=== PATIENT | male | born 1945 | race Caucasian/White ===

== ENCOUNTER 2021-04-22 14:22 | Inpatient (IN) | payer OTHER, MEDICARE, BC ==
[~2021-04-22] VITALS: Ht 182.9 cm; Wt 114.1 kg
[2021-04-22] MEDS ORDERED: HYDR-4514 PO (14:47)
[2021-04-22] MEDS ORDERED: WARF4TAB52 PO (14:47)
[2021-04-22] MEDS ORDERED: MIRT1TAB PO (14:47)
[2021-04-22] MEDS ORDERED: DIAZ5TAB PO (14:47)
[2021-04-22] MEDS ORDERED: WARF-58 PO ×2 (14:47)
[2021-04-22] MEDS ORDERED: MORPHINE 2 MG/ML 1ML VIAL (J2270) IV ONE ×2 (14:55→18:10)
[2021-04-22 17:14] LABS: BASO % 0.4 % (0.0-1.0); EOS % 0.5 % (0.0-3.0); HEMATOCRIT 49.4 % (42.0-52.0); HEMOGLOBIN 15.9 g/dl (13.5-17.5); LYMPH # 1.1 10^3/uL (1.5-5.0); LYMPH % 13.6 % (24.0-44.0); MEAN CORPUSCULAR HEMOGLOBIN 29.7 pg (27.0-33.0); MEAN CORPUSCULAR HGB CONC 32.2 g/dl (32.0-36.5); MEAN CORPUSCULAR VOLUME 92.2 fl (80.0-96.0); MONO # 0.5 10^3/uL (0.0-0.8); MONO % 5.5 % (2.0-8.0); NEUTROPHILS # 6.7 10^3/uL (1.5-8.5); NEUTROPHILS % 79.8 % (36.0-66.0); PLATELET COUNT, AUTOMATED 143 10^3/uL (150-450); RED BLOOD COUNT 5.36 10^6/uL (4.30-6.10); WHITE BLOOD COUNT 8.4 10^3/uL (4.0-10.0)
[2021-04-22 18:16] LABS: BLOOD UREA NITROGEN 17 MG/DL (7-18); GLUCOSE, FASTING 96 MG/DL (70-100)
[2021-04-22 18:17] LABS: CALCIUM LEVEL 8.7 MG/DL (8.8-10.2); CARBON DIOXIDE LEVEL 28 mmol/L (20-29); CHLORIDE LEVEL 107 MEQ/L (98-107); CREATININE FOR GFR 1.23 MG/DL (0.70-1.30); GLOMERULAR FILTRATION RATE > 60.0 (>42); POTASSIUM SERUM 4.8 MEQ/L (3.5-5.1); SODIUM LEVEL 141 MEQ/L (136-145)
[2021-04-22 18:18] LABS: ALBUMIN 3.6 GM/DL (3.2-5.2); ALT/SGPT 21 IU/L (0-32); BILIRUBIN,DIRECT 0.2 MG/DL (0.0-0.2); BILIRUBIN,TOTAL 0.5 MG/DL (0.2-1.0); ETHYL ALCOHOL (ETHANOL) < 0.003 % (0.000-0.010); TOTAL PROTEIN 6.2 GM/DL (6.4-8.2)
[2021-04-22 18:23] LABS: CK-MB VALUE MASS 2.9 NG/ML (<3.6); MB/CK RELATIVE INDEX 2.58 (< OR =4)
[2021-04-22 19:36] LABS: INR 3.49; PROTHROMBIN TIME 35.3 SECONDS (12.7-14.5)
[2021-04-22 19:38] LABS: PARTIAL THROMBOPLASTIN TIME 56.1 SECONDS (25.9-37.0)
[2021-04-22 19:46] LABS: APPEARANCE, URINE CLEAR (CLEAR); BACTERIA, URINE AUTO NEGATIVE (NEGATIVE); BILIRUBIN, URINE AUTO NEGATIVE (NEGATIVE); BLOOD, URINE BLOOD 1+ (NEGATIVE); COLOR, URINE YELLOW (YELLOW); GLUCOSE, URINE (UA) AUTO NEGATIVE (NEGATIVE); KETONE, URINE AUTO NEGATIVE (NEGATIVE); LEUKOCYTE ESTERASE, URINE AUTO NEGATIVE (NEGATIVE); MUCUS, URINE SMALL (NEGATIVE); NITRITE, URINE AUTO NEGATIVE (NEGATIVE); PROTEIN, URINE AUTO NEGATIVE (NEGATIVE); RBC, URINE AUTO 1 /HPF (0-3); SPECIFIC GRAVITY URINE AUTO 1.019 (1.002-1.035); SQUAMOUS EPITHELIAL CELL UR AU 0 /HPF (0-6); UROBILINOGEN, URINE AUTO 0.2 mg/dL (0.0-2.0); WBC, URINE AUTO 1 /HPF (0-3)
[2021-04-22 19:48] LABS: RSV AMPLIFICATION NEGATIVE (NEGATIVE)
[2021-04-22 19:54] LABS: AMPHETAMINES LEVEL URINE NEGATIVE (NEGATIVE); BARBITURATES URINE NEGATIVE (NEGATIVE); BENZODIAZEPINES URINE POSITIVE (NEGATIVE); CANNABINOIDS URINE NEGATIVE (NEGATIVE); COCAINE METABOLITE URINE NEGATIVE (NEGATIVE); METHADONE URINE NEGATIVE (NEGATIVE); OPIATES URINE POSITIVE (NEGATIVE); PHENCYCLIDINE URINE NEGATIVE (NEGATIVE)
[2021-04-22] MEDS ORDERED: D31000TA2 PO (20:01)
[2021-04-22] MEDS ORDERED: GABA-282 PO (20:01)
[2021-04-22] MEDS ORDERED: APAP325T4 PO (20:01)
[2021-04-22] MEDS ORDERED: VITA500T40 PO (20:01)
[2021-04-22] MEDS ORDERED: HOME MED LIST COMPLETE! XX SCH (20:05)
[2021-04-22] MEDS ORDERED: ANEXSIA, NORCO 7.5MG/325MG TABLET(HYDROCODONE/APAP) PO PRN (20:45)
[2021-04-22] MEDS ORDERED: ACETAMINOPHEN TAB 650MG DOSE (2X325MG) PO PRN (20:45)
[2021-04-22] MEDS ORDERED: MOM 30ML SUSPENSION UDC PO PRN (20:45)
[2021-04-22 23:00] VITALS: BP 123/71
[2021-04-22] MEDS: diazePAM 5MG TABLET PO SCH (23:44)
[2021-04-22] MEDS: MIRTAZAPINE 7.5MG PER 1/2 TABLET PO SCH (23:44)
[2021-04-23 06:00] VITALS: BP 121/75
[2021-04-23] MEDS ORDERED: MORPHINE 2 MG/ML 1ML VIAL (J2270) IV ONE (06:05)
[2021-04-23 06:15] LABS: HEMATOCRIT 49.1 % (42.0-52.0); HEMOGLOBIN 15.8 g/dl (13.5-17.5); MEAN CORPUSCULAR HEMOGLOBIN 29.9 pg (27.0-33.0); MEAN CORPUSCULAR HGB CONC 32.2 g/dl (32.0-36.5); MEAN CORPUSCULAR VOLUME 92.8 fl (80.0-96.0); PLATELET COUNT, AUTOMATED 148 10^3/uL (150-450); RED BLOOD COUNT 5.29 10^6/uL (4.30-6.10); WHITE BLOOD COUNT 7.4 10^3/uL (4.0-10.0)
[2021-04-23 06:37] LABS: ALBUMIN 3.8 GM/DL (3.2-5.2); ALT/SGPT 21 U/L (12-78); BILIRUBIN,TOTAL 0.8 MG/DL (0.2-1.0); BLOOD UREA NITROGEN 19 MG/DL (7-18); CALCIUM LEVEL 8.9 MG/DL (8.8-10.2); CARBON DIOXIDE LEVEL 27 MEQ/L (21-32); CHLORIDE LEVEL 108 MEQ/L (98-107); CREATININE FOR GFR 1.16 MG/DL (0.70-1.30); GLOMERULAR FILTRATION RATE > 60.0 (>42); GLUCOSE, FASTING 97 MG/DL (70-100); SODIUM LEVEL 143 MEQ/L (136-145); TOTAL PROTEIN 6.7 GM/DL (6.4-8.2)
[2021-04-23] MEDS ORDERED: CYCLOBENZAPRINE 10MG TABLET PO PRN (09:10)
[2021-04-23] MEDS ORDERED: PERCOCET 5MG/325MG TAB PO PRN (09:10)
[2021-04-23] MEDS: PERCOCET 5MG/325MG TAB PO PRN ×2 (09:38→13:46)
[2021-04-23 13:05] LABS: INR 3.48; PROTHROMBIN TIME 35.2 SECONDS (12.7-14.5)
[2021-04-23 13:47] VITALS: BP 119/61
[2021-04-23] MEDS: diazePAM 5MG TABLET PO SCH (21:06)
[2021-04-23] MEDS: MIRTAZAPINE 7.5MG PER 1/2 TABLET PO SCH (21:06)
[2021-04-23 22:00] VITALS: BP 122/59
[2021-04-24 06:00] VITALS: BP 163/78
[2021-04-24 06:35] LABS: BASO % 0.7 % (0.0-1.0); EOS # 0.1 10^3/uL (0.0-0.5); EOS % 1.7 % (0.0-3.0); HEMATOCRIT 46.4 % (42.0-52.0); LYMPH # 1.2 10^3/uL (1.5-5.0); LYMPH % 20.5 % (24.0-44.0); MEAN CORPUSCULAR HEMOGLOBIN 29.8 pg (27.0-33.0); MEAN CORPUSCULAR HGB CONC 32.3 g/dl (32.0-36.5); MEAN CORPUSCULAR VOLUME 92.1 fl (80.0-96.0); MONO # 0.5 10^3/uL (0.0-0.8); MONO % 7.6 % (2.0-8.0); NEUTROPHILS # 4.1 10^3/uL (1.5-8.5); NEUTROPHILS % 69.3 % (36.0-66.0); PLATELET COUNT, AUTOMATED 131 10^3/uL (150-450); RED BLOOD COUNT 5.04 10^6/uL (4.30-6.10); WHITE BLOOD COUNT 5.9 10^3/uL (4.0-10.0)
[2021-04-24 06:47] LABS: INR 3.39; PROTHROMBIN TIME 34.5 SECONDS (12.7-14.5)
[2021-04-24 06:59] LABS: BLOOD UREA NITROGEN 15 MG/DL (7-18); CALCIUM LEVEL 8.4 MG/DL (8.8-10.2); CARBON DIOXIDE LEVEL 27 MEQ/L (21-32); CHLORIDE LEVEL 106 MEQ/L (98-107); CREATININE FOR GFR 1.17 MG/DL (0.70-1.30); GLOMERULAR FILTRATION RATE > 60.0 (>42); GLUCOSE, FASTING 96 MG/DL (70-100); SODIUM LEVEL 141 MEQ/L (136-145)
[2021-04-24] MEDS ORDERED: PERCOCET PO (09:32)
[2021-04-24] MEDS ORDERED: CYCL10TA20 PO (09:32)
== END 2021-04-24 11:00 | DRG 930 ==
LOC: M ED 14:22 → EDBD 14:22 → M MS5PR 20:41 → ENRESERV 21:52
PROVIDERS: ADMIT Family Medicine; ATTEND Internal Medicine
DX: S34.21XA Injury of nerve root of lumbar spine, initial encounter (principal); S06.9X1A Unspecified intracranial injury with loss of consciousness of 30 minutes or less, initial encounter; F43.10 Post-traumatic stress disorder, unspecified; Z86.718 Personal history of other venous thrombosis and embolism; Z79.899 Other long term (current) drug therapy; Z91.040 Latex allergy status; Z88.0 Allergy status to penicillin; Z88.5 Allergy status to narcotic agent; Z91.012 Allergy to eggs; Z96.653 Presence of artificial knee joint, bilateral; W18.30XA Fall on same level, unspecified, initial encounter; Y92.009 Unspecified place in unspecified non-institutional (private) residence as the place of occurrence of the external cause

== ENCOUNTER 2021-04-24 10:40 | Inpatient (IN) | payer OTHER, MEDICARE ==
[~2021-04-24] VITALS: Ht 182.9 cm; Wt 114.1 kg
[~2021-04-24 10:40] MED LIST: APAP325T4 PO; CYCL10TA20 PO; D31000TA2 PO; DIAZ5TAB PO; GABA-282 PO; HYDR-4514 PO; MIRT1TAB PO; PERCOCET PO; VITA500T40 PO; WARF-58 PO; WARF4TAB52 PO
[2021-04-24] MEDS ORDERED: CYCLOBENZAPRINE 10MG TABLET PO PRN (10:45)
[2021-04-24] MEDS ORDERED: BISACODYL 10 MG SUPP PR PRN (10:45)
[2021-04-24] MEDS ORDERED: oxyCODONE 5MG TAB PO PRN (10:45)
[2021-04-24] MEDS ORDERED: MIRALAX *UNIT DOSE* 17GM PACKET PO PRN (10:45)
[2021-04-24 11:05] VITALS: BP 145/65
[2021-04-24] MEDS ORDERED: HOME MED LIST COMPLETE! XX SCH (11:35)
[2021-04-24] MEDS: DICLOFENAC EPOLAMINE 1.3 % PATCH TOP SCH ×2 (12:12→20:53)
[2021-04-24] MEDS: DOCUSATE SODIUM 100MG CAPSULE PO SCH ×2 (12:12→20:52)
[2021-04-24] MEDS: PANTOPRAZOLE 40MG TAB (PROTONIX) PO SCH (12:13)
[2021-04-24] MEDS: MAGNESIUM OXIDE 400MG TAB (MAG-OX) PO SCH (12:13)
[2021-04-24 14:00] VITALS: BP 157/72
[2021-04-24] MEDS: ACETAMINOPHEN 500 MG TAB PO SCH ×2 (14:26→20:52)
[2021-04-24] MEDS: REMEDY PHYTOPLEX Z-GUARD PASTE 113GM TUBE (FROM STOREROOM PRODUCT) TOP SCH ×2 (15:47→20:53)
[2021-04-24 20:00] VITALS: BP 131/60
[2021-04-24] MEDS: SENNA 8.6 MG TAB (SENOKOT) PO SCH (20:52)
[2021-04-24] MEDS: MIRTAZAPINE 7.5MG PER 1/2 TABLET PO SCH (20:52)
[2021-04-24] MEDS: diazePAM 5MG TABLET PO SCH (20:52)
[2021-04-25 06:00] VITALS: BP 120/64
[2021-04-25] MEDS: ACETAMINOPHEN 500 MG TAB PO SCH ×3 (06:23→20:26)
[2021-04-25] MEDS: DOCUSATE SODIUM 100MG CAPSULE PO SCH ×2 (08:09→20:27)
[2021-04-25] MEDS: REMEDY PHYTOPLEX Z-GUARD PASTE 113GM TUBE (FROM STOREROOM PRODUCT) TOP SCH ×3 (08:10→20:26)
[2021-04-25] MEDS: DICLOFENAC EPOLAMINE 1.3 % PATCH TOP SCH ×2 (08:10→20:26)
[2021-04-25] MEDS: PANTOPRAZOLE 40MG TAB (PROTONIX) PO SCH (08:10)
[2021-04-25] MEDS: MAGNESIUM OXIDE 400MG TAB (MAG-OX) PO SCH (08:10)
[2021-04-25 11:13] LABS: BASO % 0.7 % (0.0-1.0); EOS # 0.1 10^3/uL (0.0-0.5); EOS % 1.8 % (0.0-3.0); HEMATOCRIT 46.8 % (42.0-52.0); HEMOGLOBIN 15.5 g/dl (13.5-17.5); LYMPH # 0.8 10^3/uL (1.5-5.0); LYMPH % 17.4 % (24.0-44.0); MEAN CORPUSCULAR HEMOGLOBIN 29.8 pg (27.0-33.0); MEAN CORPUSCULAR HGB CONC 33.1 g/dl (32.0-36.5); MONO # 0.4 10^3/uL (0.0-0.8); MONO % 9.2 % (2.0-8.0); NEUTROPHILS # 3.2 10^3/uL (1.5-8.5); NEUTROPHILS % 70.7 % (36.0-66.0); PLATELET COUNT, AUTOMATED 148 10^3/uL (150-450); WHITE BLOOD COUNT 4.5 10^3/uL (4.0-10.0)
[2021-04-25 11:25] LABS: INR 2.45
[2021-04-25 11:44] LABS: ALBUMIN 3.5 GM/DL (3.2-5.2); ALT/SGPT 19 U/L (12-78); BILIRUBIN,TOTAL 0.7 MG/DL (0.2-1.0); BLOOD UREA NITROGEN 15 MG/DL (7-18); CALCIUM LEVEL 9.1 MG/DL (8.8-10.2); CARBON DIOXIDE LEVEL 27 MEQ/L (21-32); CHLORIDE LEVEL 108 MEQ/L (98-107); CREATININE FOR GFR 1.16 MG/DL (0.70-1.30); GLOMERULAR FILTRATION RATE > 60.0 (>42); GLUCOSE, FASTING 101 MG/DL (70-100); POTASSIUM SERUM 4.4 MEQ/L (3.5-5.1); SODIUM LEVEL 139 MEQ/L (136-145); TOTAL PROTEIN 6.3 GM/DL (6.4-8.2)
[2021-04-25 14:00] VITALS: BP 136/71
[2021-04-25] MEDS ORDERED: WARFARIN SOD 2MG TAB PO SCH (17:00)
[2021-04-25 20:00] VITALS: BP 124/56
[2021-04-25] MEDS: diazePAM 5MG TABLET PO SCH (20:25)
[2021-04-25] MEDS: MIRTAZAPINE 7.5MG PER 1/2 TABLET PO SCH (20:25)
[2021-04-25] MEDS: SENNA 8.6 MG TAB (SENOKOT) PO SCH (20:26)
[2021-04-26] MEDS: ACETAMINOPHEN 500 MG TAB PO SCH ×2 (05:48→13:22)
[2021-04-26 06:00] VITALS: BP 143/67
[2021-04-26 07:43] LABS: INR 2.22
[2021-04-26] MEDS: MAGNESIUM OXIDE 400MG TAB (MAG-OX) PO SCH (08:27)
[2021-04-26] MEDS: DOCUSATE SODIUM 100MG CAPSULE PO SCH (08:27)
[2021-04-26] MEDS: DICLOFENAC EPOLAMINE 1.3 % PATCH TOP SCH (08:27)
[2021-04-26] MEDS: PANTOPRAZOLE 40MG TAB (PROTONIX) PO SCH (08:27)
[2021-04-26] MEDS: REMEDY PHYTOPLEX Z-GUARD PASTE 113GM TUBE (FROM STOREROOM PRODUCT) TOP SCH (08:27)
[2021-04-26] MEDS ORDERED: JANT2TAB PO (11:01)
[2021-04-26] MEDS ORDERED: PERCOCET PO (11:01)
[2021-04-26] MEDS ORDERED: CYCL10TA20 PO (11:01)
[2021-04-26 14:00] VITALS: BP 147/71
== END 2021-04-26 15:00 | disposition home or self-care (01) | DRG 347 ==
LOC: M PM&R 11:05
PROVIDERS: ADMIT Physical Medicine & Rehabilitation; ATTEND Physical Medicine & Rehabilitation
DX: M48.061 Spinal stenosis, lumbar region without neurogenic claudication (principal); F41.9 Anxiety disorder, unspecified; F43.10 Post-traumatic stress disorder, unspecified; Z86.718 Personal history of other venous thrombosis and embolism; R53.1 Weakness; Z91.81 History of falling; Z79.01 Long term (current) use of anticoagulants; Z79.899 Other long term (current) drug therapy; Z88.0 Allergy status to penicillin; Z88.8 Allergy status to other drugs, medicaments and biological substances; Z91.040 Latex allergy status; Z91.012 Allergy to eggs

== ENCOUNTER → 2021-05-30 | Outpatient (CLI) | payer OTHER, MEDICARE, BC ==
[~2021-05-30] MED LIST changes: +JANT2TAB PO
== END ==
LOC: M SOG 15:17
PROVIDERS: ATTEND Orthopaedic Surgery Sports Medicine
DX: S46.011A Strain of muscle(s) and tendon(s) of the rotator cuff of right shoulder, initial encounter (principal); X58.XXXA Exposure to other specified factors, initial encounter; Y92.9 Unspecified place or not applicable; Y93.9 Activity, unspecified; Y99.9 Unspecified external cause status

== ENCOUNTER 2021-06-26 17:07 | Emergency (ER) | payer OTHER ==
[~2021-06-26] VITALS: Ht 180.3 cm; Wt 106.8 kg
[2021-06-26 18:13] LABS: BASO % 0.6 % (0.0-1.0); EOS # 0.1 10^3/uL (0.0-0.5); HEMATOCRIT 48.8 % (42.0-52.0); HEMOGLOBIN 16.1 g/dl (13.5-17.5); LYMPH % 13.5 % (24.0-44.0); MEAN CORPUSCULAR HEMOGLOBIN 29.9 pg (27.0-33.0); MEAN CORPUSCULAR VOLUME 90.7 fl (80.0-96.0); MONO # 0.5 10^3/uL (0.0-0.8); MONO % 6.4 % (2.0-8.0); NEUTROPHILS # 5.6 10^3/uL (1.5-8.5); NEUTROPHILS % 78.2 % (36.0-66.0); PLATELET COUNT, AUTOMATED 145 10^3/uL (150-450); RED BLOOD COUNT 5.38 10^6/uL (4.30-6.10); WHITE BLOOD COUNT 7.2 10^3/uL (4.0-10.0)
[2021-06-26] MEDS ORDERED: PHYTONADIONE INJection 5 MG in NS 50 ML IV ONE (18:20)
[2021-06-26 18:23] LABS: INR 1.64; PROTHROMBIN TIME 19.8 SECONDS (12.7-14.5)
[2021-06-26 18:24] LABS: PARTIAL THROMBOPLASTIN TIME 42.8 SECONDS (25.9-37.0)
[2021-06-26 18:37] LABS: ALBUMIN 3.6 GM/DL (3.2-5.2); ALT/SGPT 24 U/L (12-78); AMYLASE 45 U/L (25-115); BILIRUBIN,DIRECT < 0.1 MG/DL (0.0-0.2); BILIRUBIN,TOTAL 0.4 MG/DL (0.2-1.0); BLOOD UREA NITROGEN 22 MG/DL (7-18); CARBON DIOXIDE LEVEL 31 MEQ/L (21-32); CHLORIDE LEVEL 106 MEQ/L (98-107); CREATININE FOR GFR 1.09 MG/DL (0.70-1.30); ETHYL ALCOHOL (ETHANOL) < 0.003 % (0.000-0.010); GLOMERULAR FILTRATION RATE > 60.0 (>42); GLUCOSE, FASTING 96 MG/DL (70-100); LIPASE 102 U/L (73-393); POTASSIUM SERUM 4.7 MEQ/L (3.5-5.1); SODIUM LEVEL 140 MEQ/L (136-145); TOTAL PROTEIN 6.2 GM/DL (6.4-8.2)
[2021-06-26 18:44] LABS: RSV AMPLIFICATION NEGATIVE (NEGATIVE)
[2021-06-26] MEDS ORDERED: PERCOCET 5MG/325MG TAB PO ONE (19:30)
[2021-06-26] MEDS ORDERED: MORPHINE 4 MG/ML 1ML VIAL/SYRINGE IV ONE (20:30)
[2021-06-26 20:41] VITALS: BP 126/86
== END 2021-06-26 20:48 | disposition short-term general hospital (02) ==
LOC: EDBD 17:07 → M ED 17:07
DX: S06.5X9A Traumatic subdural hemorrhage with loss of consciousness of unspecified duration, initial encounter (principal); W18.30XA Fall on same level, unspecified, initial encounter; J45.909 Unspecified asthma, uncomplicated; I48.91 Unspecified atrial fibrillation; Z87.891 Personal history of nicotine dependence; Y92.009 Unspecified place in unspecified non-institutional (private) residence as the place of occurrence of the external cause; Z88.0 Allergy status to penicillin; Z91.012 Allergy to eggs; Z91.040 Latex allergy status; Z79.01 Long term (current) use of anticoagulants; Z79.899 Other long term (current) drug therapy
CPT/HCPCS: 70450; 71045; 72125; 72128; 72131; 73552; 73564; 73590; 73610; 80048; 80076; 82077; 82150; 83605; 83690; 85025; 85610; 85730; 86850; 86900; 86901; 87631; 93005; 93041; 94760; 96365; 96375; 99285; J2270; J3430

== ENCOUNTER → 2021-06-26 | Outpatient (CLI) | payer OTHER ==
[~2021-06-26] MED LIST changes: -D31000TA2 PO; +VITA100093 PO
[2021-06-26 13:21] LABS: BASO % 0.5 % (0.0-1.0); EOS # 0.1 10^3/uL (0.0-0.5); EOS % 1.3 % (0.0-3.0); HEMATOCRIT 51.3 % (42.0-52.0); HEMOGLOBIN 16.7 g/dl (13.5-17.5); LYMPH # 1.1 10^3/uL (1.5-5.0); LYMPH % 14.9 % (24.0-44.0); MEAN CORPUSCULAR HEMOGLOBIN 29.8 pg (27.0-33.0); MEAN CORPUSCULAR HGB CONC 32.6 g/dl (32.0-36.5); MEAN CORPUSCULAR VOLUME 91.4 fl (80.0-96.0); MONO # 0.5 10^3/uL (0.0-0.8); MONO % 6.1 % (2.0-8.0); NEUTROPHILS # 5.8 10^3/uL (1.5-8.5); NEUTROPHILS % 77.1 % (36.0-66.0); PLATELET COUNT, AUTOMATED 167 10^3/uL (150-450); RED BLOOD COUNT 5.61 10^6/uL (4.30-6.10); WHITE BLOOD COUNT 7.5 10^3/uL (4.0-10.0)
[2021-06-26 13:52] LABS: ERYTHROCYTE SEDIMENTATION RATE 2 mm/hr (0-20)
== END ==
LOC: M LAB 12:25
PROVIDERS: ATTEND Orthopaedic Surgery Adult Reconstructive Orthopaedic Surgery
DX: T84.84XA Pain due to internal orthopedic prosthetic devices, implants and grafts, initial encounter (principal)

== ENCOUNTER → 2021-06-26 | Outpatient (CLI) | payer OTHER, MEDICARE, BC | LOC: M SOG 08:19 | PROVIDERS: ATTEND Orthopaedic Surgery Adult Reconstructive Orthopaedic Surgery | DX: M25.561 Pain in right knee (principal); Z96.651 Presence of right artificial knee joint ==

== ENCOUNTER → 2021-06-26 | Outpatient (CLI) | payer OTHER ==
[2021-06-26 13:45] LABS: INR 1.5; PROTHROMBIN TIME 18.5 SECONDS (12.7-14.5)
== END ==
LOC: M LAB 12:18
PROVIDERS: ATTEND Physical Medicine & Rehabilitation
DX: I40.9 Acute myocarditis, unspecified (principal)

== ENCOUNTER → 2021-07-31 | Outpatient (CLI) | payer OTHER | LOC: M PLAIMG 07:55 | PROVIDERS: ATTEND Orthopaedic Surgery Sports Medicine | DX: M75.81 Other shoulder lesions, right shoulder (principal); S46.011A Strain of muscle(s) and tendon(s) of the rotator cuff of right shoulder, initial encounter; X58.XXXA Exposure to other specified factors, initial encounter; Y92.9 Unspecified place or not applicable; Y93.9 Activity, unspecified; Y99.9 Unspecified external cause status ==

== ENCOUNTER → 2021-08-20 | Outpatient (CLI) | payer OTHER | LOC: M RAD 09:47 | PROVIDERS: ATTEND Orthopaedic Surgery Adult Reconstructive Orthopaedic Surgery | DX: T84.84XA Pain due to internal orthopedic prosthetic devices, implants and grafts, initial encounter (principal) | CPT/HCPCS: 78315; A9503 ==

== ENCOUNTER → 2021-11-01 | Outpatient (CLI) | payer OTHER | LOC: M RAD 08:06 | DX: M23.51 Chronic instability of knee, right knee (principal); Z96.698 Presence of other orthopedic joint implants; M25.461 Effusion, right knee ==

== ENCOUNTER → 2021-12-12 | Outpatient (CLI) | payer MEDICARE | LOC: M RAD 08:52 | PROVIDERS: ATTEND Internal Medicine | DX: R10.32 Left lower quadrant pain (principal) ==

== ENCOUNTER → 2023-03-23 | Outpatient (CLI) | payer MEDICARE ==
[~2023-03-23] MED LIST changes: +ALBU8.5H INH; +CETI-24 PO; +CYCL5TAB PO; +GABA-1171 PO; +ISOS1TAB36 PO; +METO1TAB87 PO; +VALA500T5 PO; +WARF4TAB51 PO
== END ==
LOC: M SOG 09:54
PROVIDERS: ATTEND Orthopaedic Surgery
DX: M25.512 Pain in left shoulder (principal)

== ENCOUNTER 2023-04-09 15:03 | Observation (INO) | payer OTHER, MEDICARE ==
[~2023-04-09] VITALS: Ht 180.3 cm; Wt 112.0 kg
[~2023-04-09 15:03] MED LIST changes: -METO1TAB32 PO; -PANT40TA29
[2023-04-09] MEDS ORDERED: METO1TAB32 PO (15:28)
[2023-04-09] MEDS ORDERED: PANT40TA29 (15:28)
[2023-04-09] MEDS ORDERED: diazePAM 5MG TABLET PO ONE (18:00)
[2023-04-09 18:43] LABS: BASO % 0.5 % (0.0-1.0); EOS # 0.1 10^3/uL (0.0-0.5); EOS % 0.9 % (0.0-3.0); HEMATOCRIT 53.7 % (42.0-52.0); HEMOGLOBIN 16.8 g/dl (13.5-17.5); LYMPH # 1.1 10^3/uL (1.5-5.0); LYMPH % 19.1 % (24.0-44.0); MEAN CORPUSCULAR HEMOGLOBIN 30.3 pg (27.0-33.0); MEAN CORPUSCULAR HGB CONC 31.3 g/dl (32.0-36.5); MEAN CORPUSCULAR VOLUME 96.9 fl (80.0-96.0); MONO # 0.3 10^3/uL (0.0-0.8); MONO % 5.7 % (2.0-8.0); NEUTROPHILS # 4.1 10^3/uL (1.5-8.5); NEUTROPHILS % 73.6 % (36.0-66.0); RED BLOOD COUNT 5.54 10^6/uL (4.30-6.10); WHITE BLOOD COUNT 5.6 10^3/uL (4.0-10.0)
[2023-04-09 18:59] LABS: PLATELET COUNT, AUTOMATED 137 10^3/uL (150-450)
[2023-04-09 19:06] LABS: RSV AMPLIFICATION NEGATIVE (NEGATIVE)
[2023-04-09] MEDS ORDERED: METHOCARBAMOL 1,000 MG/10 ML VIAL IV ONE (19:25)
[2023-04-09 19:33] LABS: BLOOD UREA NITROGEN 23 MG/DL (9-23); CARBON DIOXIDE LEVEL 29 MMOL/L (20-31); CHLORIDE LEVEL 109 MMOL/L (98-107); GLOMERULAR FILTRATION RATE > 60.0 (>42); GLUCOSE, FASTING 85 MG/DL (74-106); POTASSIUM SERUM 4.6 MMOL/L (3.5-5.1); SODIUM LEVEL 143 MMOL/L (136-145)
[2023-04-09] MEDS ORDERED: HOME MED LIST COMPLETE! XX SCH (21:10)
[2023-04-09] MEDS ORDERED: MORPHINE 2 MG/ML 1ML VIAL IV ONE (22:30)
[2023-04-09] MEDS ORDERED: MORPHINE 2 MG/ML 1ML VIAL IV PRN (22:50)
[2023-04-09] MEDS ORDERED: MAALOX 30 ML SUSP *UDC PO PRN (22:50)
[2023-04-09] MEDS ORDERED: ACETAMINOPHEN TAB 650MG DOSE (2X325MG) PO PRN (22:50)
[2023-04-09] MEDS: DICLOFENAC EPOLAMINE 1.3% PATCH TOP SCH (23:43)
[2023-04-10 00:30] VITALS: BP 148/67; TEMP 98.1; O2SAT 97
[2023-04-10] MEDS: KETOROLAC 30 MG/ML 1ML VIAL IV PRN ×3 (01:43→18:29)
[2023-04-10] MEDS ORDERED: methocarbamoL 750 MG TAB PO PRN (02:00)
[2023-04-10] MEDS: MORPHINE 2 MG/ML 1ML VIAL IV PRN ×3 (03:28→22:02)
[2023-04-10] MEDS ORDERED: ALBUTEROL 90 MCG/ACT 8GM HFA INHALER INH PRN (04:25)
[2023-04-10 04:30] VITALS: BP 139/68; TEMP 98.2; O2SAT 95
[2023-04-10] MEDS: CYCLOBENZAPRINE 5MG TABLET PO SCH ×2 (05:55→19:44)
[2023-04-10] MEDS: diazePAM 5MG TABLET PO PRN ×2 (05:56→20:59)
[2023-04-10] MEDS: CETIRIZINE (ZyrTEC) 10 MG TAB PO SCH ×2 (05:56→19:44)
[2023-04-10 06:41] LABS: HEMATOCRIT 47.6 % (42.0-52.0); HEMOGLOBIN 15.4 g/dl (13.5-17.5); MEAN CORPUSCULAR HEMOGLOBIN 30.1 pg (27.0-33.0); MEAN CORPUSCULAR HGB CONC 32.4 g/dl (32.0-36.5); MEAN CORPUSCULAR VOLUME 93.2 fl (80.0-96.0); PLATELET COUNT, AUTOMATED 155 10^3/uL (150-450); RED BLOOD COUNT 5.11 10^6/uL (4.30-6.10); WHITE BLOOD COUNT 6.8 10^3/uL (4.0-10.0)
[2023-04-10 07:06] LABS: ALBUMIN 3.3 G/DL (3.2-5.2); ALKALINE PHOSPHATASE 55 U/L (46-116); ALT/SGPT 10 U/L (7.0-40); AST/SGOT 11 U/L (<34); BILIRUBIN,TOTAL 0.9 MG/DL (0.3-1.2); BLOOD UREA NITROGEN 22 MG/DL (9-23); CALCIUM LEVEL 8.5 MG/DL (8.3-10.6); CARBON DIOXIDE LEVEL 26 MMOL/L (20-31); CHLORIDE LEVEL 110 MMOL/L (98-107); CREATININE FOR GFR 0.93 MG/DL (0.70-1.30); GLOMERULAR FILTRATION RATE > 60.0 (>42); GLUCOSE, FASTING 89 MG/DL (74-106); MAGNESIUM LEVEL 1.9 MG/DL (1.8-2.4); SODIUM LEVEL 142 MMOL/L (136-145); TOTAL PROTEIN 5.8 G/DL (5.7-8.2)
[2023-04-10 07:17] LABS: INR 2.41; PROTHROMBIN TIME 25.4 SECONDS (12.5-14.5)
[2023-04-10] MEDS: DOCUSATE SODIUM 100MG CAPSULE PO SCH ×2 (08:35→19:44)
[2023-04-10] MEDS: GABAPENTIN 100 MG CAP PO SCH ×3 (08:36→19:44)
[2023-04-10] MEDS: METOPROLOL SUCC *XL* 12.5MG PER 1/2 TAB (TopROL *XL*) PO SCH (08:36)
[2023-04-10] MEDS: DICLOFENAC EPOLAMINE 1.3% PATCH TOP SCH ×2 (08:37→19:43)
[2023-04-10] MEDS ORDERED: METOPROLOL SUCC *XL* 25MG TAB (TopROL *XL*) PO SCH (09:00)
[2023-04-10 14:00] VITALS: BP 128/60; TEMP 97.5; O2SAT 95
[2023-04-10] MEDS: WARFARIN SOD 3MG TAB PO SCH (16:13)
[2023-04-10] MEDS: NYSTATIN 100,000 UNITS/GM TOPICAL PWD 15GM TOP SCH (19:45)
[2023-04-10 22:00] VITALS: BP 111/50; TEMP 98.1; O2SAT 95
[2023-04-11 06:00] VITALS: BP 116/60; TEMP 97.5; O2SAT 93
[2023-04-11 06:06] LABS: HEMATOCRIT 48.3 % (42.0-52.0); HEMOGLOBIN 15.5 g/dl (13.5-17.5); MEAN CORPUSCULAR HEMOGLOBIN 30.5 pg (27.0-33.0); MEAN CORPUSCULAR HGB CONC 32.1 g/dl (32.0-36.5); MEAN CORPUSCULAR VOLUME 94.9 fl (80.0-96.0); PLATELET COUNT, AUTOMATED 161 10^3/uL (150-450); RED BLOOD COUNT 5.09 10^6/uL (4.30-6.10); WHITE BLOOD COUNT 4.9 10^3/uL (4.0-10.0)
[2023-04-11 06:24] LABS: INR 2.71; PROTHROMBIN TIME 27.7 SECONDS (12.5-14.5)
[2023-04-11 06:39] LABS: BLOOD UREA NITROGEN 28 MG/DL (9-23); CALCIUM LEVEL 8.2 MG/DL (8.3-10.6); CARBON DIOXIDE LEVEL 27 MMOL/L (20-31); CHLORIDE LEVEL 111 MMOL/L (98-107); CREATININE FOR GFR 1.08 MG/DL (0.70-1.30); GLOMERULAR FILTRATION RATE > 60.0 (>42); GLUCOSE, FASTING 98 MG/DL (74-106); POTASSIUM SERUM 4.5 MMOL/L (3.5-5.1); SODIUM LEVEL 143 MMOL/L (136-145)
[2023-04-11] MEDS: DICLOFENAC EPOLAMINE 1.3% PATCH TOP SCH ×2 (09:35→20:42)
[2023-04-11] MEDS: NYSTATIN 100,000 UNITS/GM TOPICAL PWD 15GM TOP SCH ×3 (09:36→20:42)
[2023-04-11] MEDS: GABAPENTIN 100 MG CAP PO SCH ×3 (09:36→20:42)
[2023-04-11] MEDS: DOCUSATE SODIUM 100MG CAPSULE PO SCH ×2 (09:36→20:44)
[2023-04-11] MEDS: METOPROLOL SUCC *XL* 12.5MG PER 1/2 TAB (TopROL *XL*) PO SCH (09:39)
[2023-04-11] MEDS: KETOROLAC 30 MG/ML 1ML VIAL IV PRN ×2 (09:42→15:54)
[2023-04-11] MEDS: MORPHINE 2 MG/ML 1ML VIAL IV PRN (12:45)
[2023-04-11 14:00] VITALS: BP 127/62; TEMP 98.1; O2SAT 98
[2023-04-11] MEDS: WARFARIN SOD 3MG TAB PO SCH (16:02)
[2023-04-11 20:38] VITALS: BP 122/58; TEMP 98.1; O2SAT 97
[2023-04-11] MEDS: CETIRIZINE (ZyrTEC) 10 MG TAB PO SCH (20:42)
[2023-04-11] MEDS: diazePAM 5MG TABLET PO PRN (20:42)
[2023-04-11] MEDS: CYCLOBENZAPRINE 5MG TABLET PO SCH (20:42)
[2023-04-12 06:00] VITALS: BP 122/58; TEMP 98.4; O2SAT 94
[2023-04-12 06:52] LABS: HEMATOCRIT 45.9 % (42.0-52.0); MEAN CORPUSCULAR HEMOGLOBIN 30.5 pg (27.0-33.0); MEAN CORPUSCULAR HGB CONC 32.7 g/dl (32.0-36.5); MEAN CORPUSCULAR VOLUME 93.5 fl (80.0-96.0); PLATELET COUNT, AUTOMATED 161 10^3/uL (150-450); RED BLOOD COUNT 4.91 10^6/uL (4.30-6.10); WHITE BLOOD COUNT 5.5 10^3/uL (4.0-10.0)
[2023-04-12 07:01] LABS: INR 3.02; PROTHROMBIN TIME 30.2 SECONDS (12.5-14.5)
[2023-04-12] MEDS: GABAPENTIN 100 MG CAP PO SCH ×3 (07:21→21:02)
[2023-04-12] MEDS: MORPHINE 2 MG/ML 1ML VIAL IV PRN ×3 (07:21→21:02)
[2023-04-12 07:22] LABS: BLOOD UREA NITROGEN 26 MG/DL (9-23); CALCIUM LEVEL 8.1 MG/DL (8.3-10.6); CARBON DIOXIDE LEVEL 26 MMOL/L (20-31); CHLORIDE LEVEL 109 MMOL/L (98-107); CREATININE FOR GFR 1.03 MG/DL (0.70-1.30); GLOMERULAR FILTRATION RATE > 60.0 (>42); GLUCOSE, FASTING 83 MG/DL (74-106); POTASSIUM SERUM 4.3 MMOL/L (3.5-5.1); SODIUM LEVEL 141 MMOL/L (136-145)
[2023-04-12] MEDS: METOPROLOL SUCC *XL* 12.5MG PER 1/2 TAB (TopROL *XL*) PO SCH (07:22)
[2023-04-12] MEDS: DICLOFENAC EPOLAMINE 1.3% PATCH TOP SCH ×2 (07:23→21:00)
[2023-04-12] MEDS: DOCUSATE SODIUM 100MG CAPSULE PO SCH ×2 (07:23→21:02)
[2023-04-12] MEDS: NYSTATIN 100,000 UNITS/GM TOPICAL PWD 15GM TOP SCH ×3 (07:23→21:02)
[2023-04-12] MEDS: KETOROLAC 30 MG/ML 1ML VIAL IV PRN ×2 (10:26→18:29)
[2023-04-12 14:00] VITALS: BP 135/75; TEMP 98.9; O2SAT 98
[2023-04-12] MEDS ORDERED: WARFARIN SOD 2MG TAB PO SCH (17:00)
[2023-04-12 21:00] VITALS: BP 133/64; TEMP 98.6; O2SAT 95
[2023-04-12] MEDS: CETIRIZINE (ZyrTEC) 10 MG TAB PO SCH (21:02)
[2023-04-12] MEDS: CYCLOBENZAPRINE 5MG TABLET PO SCH (21:02)
[2023-04-13] MEDS: KETOROLAC 30 MG/ML 1ML VIAL IV PRN ×2 (02:59→15:03)
[2023-04-13 06:00] VITALS: BP 129/58; TEMP 97.9; O2SAT 98
[2023-04-13 06:10] LABS: HEMATOCRIT 47.9 % (42.0-52.0); HEMOGLOBIN 15.3 g/dl (13.5-17.5); MEAN CORPUSCULAR HGB CONC 31.9 g/dl (32.0-36.5); MEAN CORPUSCULAR VOLUME 93.9 fl (80.0-96.0); PLATELET COUNT, AUTOMATED 135 10^3/uL (150-450); WHITE BLOOD COUNT 5.3 10^3/uL (4.0-10.0)
[2023-04-13 06:31] LABS: INR 3.11; PROTHROMBIN TIME 30.8 SECONDS (12.5-14.5)
[2023-04-13 06:33] LABS: BLOOD UREA NITROGEN 22 MG/DL (9-23); CALCIUM LEVEL 8.3 MG/DL (8.3-10.6); CARBON DIOXIDE LEVEL 26 MMOL/L (20-31); CHLORIDE LEVEL 108 MMOL/L (98-107); CREATININE FOR GFR 1.01 MG/DL (0.70-1.30); GLOMERULAR FILTRATION RATE > 60.0 (>42); GLUCOSE, FASTING 84 MG/DL (74-106); POTASSIUM SERUM 4.2 MMOL/L (3.5-5.1); SODIUM LEVEL 140 MMOL/L (136-145)
[2023-04-13] MEDS ORDERED: oxyCODONE 5MG TAB PO PRN (07:30)
[2023-04-13] MEDS: GABAPENTIN 100 MG CAP PO SCH ×3 (09:35→20:27)
[2023-04-13] MEDS: DICLOFENAC EPOLAMINE 1.3% PATCH TOP SCH ×2 (09:35→20:26)
[2023-04-13] MEDS: DOCUSATE SODIUM 100MG CAPSULE PO SCH ×2 (09:36→20:27)
[2023-04-13] MEDS: METOPROLOL SUCC *XL* 12.5MG PER 1/2 TAB (TopROL *XL*) PO SCH (09:39)
[2023-04-13] MEDS: MOM 30ML SUSPENSION UDC PO PRN (09:40)
[2023-04-13] MEDS: ANEXSIA, NORCO 7.5MG/325MG TABLET(HYDROCODONE/APAP) PO PRN ×2 (09:40→16:39)
[2023-04-13] MEDS: NYSTATIN 100,000 UNITS/GM TOPICAL PWD 15GM TOP SCH ×3 (09:41→20:27)
[2023-04-13 14:00] VITALS: BP 134/61; TEMP 97.9; O2SAT 98
[2023-04-13] MEDS: WARFARIN SOD 3MG TAB PO SCH (16:39)
[2023-04-13] MEDS: LIDOCAINE 5% (LIDODERM) PATCH TD SCH (20:26)
[2023-04-13] MEDS: CYCLOBENZAPRINE 5MG TABLET PO SCH (20:27)
[2023-04-13] MEDS: CETIRIZINE (ZyrTEC) 10 MG TAB PO SCH (20:27)
[2023-04-13] MEDS: diazePAM 5MG TABLET PO PRN (21:21)
[2023-04-14 04:40] VITALS: BP 121/59; TEMP 97.7; O2SAT 94
[2023-04-14 06:00] LABS: HEMOGLOBIN 14.3 g/dl (13.5-17.5); MEAN CORPUSCULAR HEMOGLOBIN 29.7 pg (27.0-33.0); MEAN CORPUSCULAR HGB CONC 31.8 g/dl (32.0-36.5); MEAN CORPUSCULAR VOLUME 93.6 fl (80.0-96.0); PLATELET COUNT, AUTOMATED 155 10^3/uL (150-450); RED BLOOD COUNT 4.81 10^6/uL (4.30-6.10)
[2023-04-14 06:25] LABS: BLOOD UREA NITROGEN 22 MG/DL (9-23); CALCIUM LEVEL 8.1 MG/DL (8.3-10.6); CARBON DIOXIDE LEVEL 26 MMOL/L (20-31); CHLORIDE LEVEL 109 MMOL/L (98-107); CREATININE FOR GFR 1.03 MG/DL (0.70-1.30); GLOMERULAR FILTRATION RATE > 60.0 (>42); GLUCOSE, FASTING 91 MG/DL (74-106); POTASSIUM SERUM 4.4 MMOL/L (3.5-5.1); SODIUM LEVEL 140 MMOL/L (136-145)
[2023-04-14 06:37] LABS: INR 2.68; PROTHROMBIN TIME 27.5 SECONDS (12.5-14.5)
[2023-04-14] MEDS: DICLOFENAC EPOLAMINE 1.3% PATCH TOP SCH ×2 (08:50→21:47)
[2023-04-14] MEDS: GABAPENTIN 100 MG CAP PO SCH ×3 (08:51→21:47)
[2023-04-14] MEDS: DOCUSATE SODIUM 100MG CAPSULE PO SCH ×2 (08:51→21:47)
[2023-04-14] MEDS: METOPROLOL SUCC *XL* 12.5MG PER 1/2 TAB (TopROL *XL*) PO SCH (08:51)
[2023-04-14] MEDS: MOM 30ML SUSPENSION UDC PO PRN (08:51)
[2023-04-14] MEDS: NYSTATIN 100,000 UNITS/GM TOPICAL PWD 15GM TOP SCH ×3 (08:57→21:48)
[2023-04-14] MEDS: WARFARIN SOD 3MG TAB PO SCH (16:18)
[2023-04-14] MEDS: CETIRIZINE (ZyrTEC) 10 MG TAB PO SCH (21:47)
[2023-04-14] MEDS: CYCLOBENZAPRINE 5MG TABLET PO SCH (21:47)
[2023-04-14] MEDS: LIDOCAINE 5% (LIDODERM) PATCH TD SCH (21:47)
[2023-04-15] MEDS: ANEXSIA, NORCO 7.5MG/325MG TABLET(HYDROCODONE/APAP) PO PRN ×3 (01:32→20:24)
[2023-04-15] MEDS: diazePAM 5MG TABLET PO PRN ×2 (01:45→22:20)
[2023-04-15] MEDS ORDERED: RAMELTEON 8 MG TAB (ROZEREM) PO PRN (01:45)
[2023-04-15 06:00] VITALS: BP 123/59; TEMP 98.4; O2SAT 96
[2023-04-15 06:01] LABS: HEMATOCRIT 44.8 % (42.0-52.0); HEMOGLOBIN 14.5 g/dl (13.5-17.5); MEAN CORPUSCULAR HEMOGLOBIN 30.3 pg (27.0-33.0); MEAN CORPUSCULAR HGB CONC 32.4 g/dl (32.0-36.5); MEAN CORPUSCULAR VOLUME 93.7 fl (80.0-96.0); PLATELET COUNT, AUTOMATED 137 10^3/uL (150-450); RED BLOOD COUNT 4.78 10^6/uL (4.30-6.10); WHITE BLOOD COUNT 5.2 10^3/uL (4.0-10.0)
[2023-04-15 06:17] LABS: INR 2.58; PROTHROMBIN TIME 26.8 SECONDS (12.5-14.5)
[2023-04-15 06:22] LABS: BLOOD UREA NITROGEN 19 MG/DL (9-23); CALCIUM LEVEL 8.3 MG/DL (8.3-10.6); CARBON DIOXIDE LEVEL 28 MMOL/L (20-31); CHLORIDE LEVEL 108 MMOL/L (98-107); CREATININE FOR GFR 0.98 MG/DL (0.70-1.30); GLOMERULAR FILTRATION RATE > 60.0 (>42); GLUCOSE, FASTING 94 MG/DL (74-106); POTASSIUM SERUM 4.4 MMOL/L (3.5-5.1); SODIUM LEVEL 139 MMOL/L (136-145)
[2023-04-15] MEDS: GABAPENTIN 100 MG CAP PO SCH ×3 (07:34→20:24)
[2023-04-15] MEDS: DICLOFENAC EPOLAMINE 1.3% PATCH TOP SCH ×2 (07:35→20:24)
[2023-04-15] MEDS: DOCUSATE SODIUM 100MG CAPSULE PO SCH ×2 (07:35→20:26)
[2023-04-15] MEDS: METOPROLOL SUCC *XL* 12.5MG PER 1/2 TAB (TopROL *XL*) PO SCH (07:35)
[2023-04-15] MEDS: NYSTATIN 100,000 UNITS/GM TOPICAL PWD 15GM TOP SCH ×3 (07:36→20:25)
[2023-04-15] MEDS: WARFARIN SOD 3MG TAB PO SCH (15:09)
[2023-04-15] MEDS: CETIRIZINE (ZyrTEC) 10 MG TAB PO SCH (20:24)
[2023-04-15] MEDS: LIDOCAINE 5% (LIDODERM) PATCH TD SCH (20:25)
[2023-04-15] MEDS: CYCLOBENZAPRINE 5MG TABLET PO SCH (20:27)
[2023-04-16 06:00] VITALS: BP 127/58; TEMP 98.1; O2SAT 96
[2023-04-16] MEDS: DICLOFENAC EPOLAMINE 1.3% PATCH TOP SCH (08:59)
[2023-04-16] MEDS: DOCUSATE SODIUM 100MG CAPSULE PO SCH (08:59)
[2023-04-16] MEDS: GABAPENTIN 300 MG CAP PO SCH ×2 (08:59→15:23)
[2023-04-16 09:00] VITALS: BP 128/60
[2023-04-16] MEDS: METOPROLOL SUCC *XL* 12.5MG PER 1/2 TAB (TopROL *XL*) PO SCH (09:00)
[2023-04-16] MEDS: NYSTATIN 100,000 UNITS/GM TOPICAL PWD 15GM TOP SCH ×2 (09:00→15:24)
[2023-04-16] MEDS ORDERED: METO1TAB32 PO (10:54)
[2023-04-16] MEDS ORDERED: DICL1PAT6 TOP (10:54)
[2023-04-16] MEDS ORDERED: GABA-282 PO (10:54)
[2023-04-16] MEDS ORDERED: SENN1TAB94 PO (10:54)
[2023-04-16] MEDS ORDERED: HYDR-3716 PO (10:54)
[2023-04-16] MEDS ORDERED: LIDO1CRE2 TOP (10:57)
== END 2023-04-16 17:00 | disposition home or self-care (01) ==
LOC: M ED 15:03 → INTOOBSV 22:47 → M ED INP 22:47 → M MSPAV 04-10 00:28
PROVIDERS: ADMIT Internal Medicine; ATTEND Internal Medicine Nephrology
DX: M75.111 Incomplete rotator cuff tear or rupture of right shoulder, not specified as traumatic (principal); M25.561 Pain in right knee; R55 Syncope and collapse; R00.1 Bradycardia, unspecified; E66.9 Obesity, unspecified; Z86.718 Personal history of other venous thrombosis and embolism; I48.91 Unspecified atrial fibrillation; F43.10 Post-traumatic stress disorder, unspecified; F41.9 Anxiety disorder, unspecified; F32.A Depression, unspecified; M48.00 Spinal stenosis, site unspecified; R29.6 Repeated falls; Z98.1 Arthrodesis status; Z79.899 Other long term (current) drug therapy
CPT/HCPCS: 36415; 71045; 73564; 80047; 80048; 80053; 83735; 85025; 85027; 85610; 87631; 93005; 93041; 93971; 94760; 96374; 96375; 96376; 97110; 97116; 97161; 97530; 99285; J1885; J2800

== ENCOUNTER → 2023-04-09 | Outpatient (CLI) | payer OTHER, MEDICARE ==
[~2023-04-09] MED LIST changes: +METO1TAB32 PO; +PANT40TA29
== END ==
LOC: M PLARAD 13:50
PROVIDERS: ATTEND Orthopaedic Surgery
DX: M75.111 Incomplete rotator cuff tear or rupture of right shoulder, not specified as traumatic (principal); M67.813 Other specified disorders of tendon, right shoulder; M25.511 Pain in right shoulder

== ENCOUNTER 2023-04-29 14:47 | Inpatient (IN) | payer OTHER, MEDICARE ==
[~2023-04-29] VITALS: Ht 182.9 cm; Wt 118.4 kg
[~2023-04-29 14:47] MED LIST changes: +DICL1PAT6 TOP; +HYDR-3716 PO; +LIDO1CRE2 TOP; +METO1TAB32 PO; +PANT40TA29; +SENN1TAB94 PO
[2023-04-29] MEDS: ANEXSIA, NORCO 7.5MG/325MG TABLET(HYDROCODONE/APAP) PO ONE (15:18)
[2023-04-29 15:21] LABS: BASO % 0.5 % (0.0-1.0); EOS # 0.1 10^3/uL (0.0-0.5); EOS % 1.3 % (0.0-3.0); HEMATOCRIT 48.1 % (42.0-52.0); HEMOGLOBIN 15.7 g/dl (13.5-17.5); LYMPH # 0.9 10^3/uL (1.5-5.0); LYMPH % 14.1 % (24.0-44.0); MEAN CORPUSCULAR HEMOGLOBIN 30.3 pg (27.0-33.0); MEAN CORPUSCULAR HGB CONC 32.6 g/dl (32.0-36.5); MEAN CORPUSCULAR VOLUME 92.9 fl (80.0-96.0); MONO # 0.4 10^3/uL (0.0-0.8); MONO % 5.6 % (2.0-8.0); NEUTROPHILS # 4.9 10^3/uL (1.5-8.5); NEUTROPHILS % 78.3 % (36.0-66.0); PLATELET COUNT, AUTOMATED 150 10^3/uL (150-450); RED BLOOD COUNT 5.18 10^6/uL (4.30-6.10); WHITE BLOOD COUNT 6.3 10^3/uL (4.0-10.0)
[2023-04-29 15:54] LABS: RSV AMPLIFICATION NEGATIVE (NEGATIVE)
[2023-04-29 15:54] LABS: BLOOD UREA NITROGEN 15 MG/DL (9-23); CALCIUM LEVEL 8.9 MG/DL (8.3-10.6); CARBON DIOXIDE LEVEL 28 MMOL/L (20-31); CHLORIDE LEVEL 109 MMOL/L (98-107); CK-MB VALUE MASS < 1.0 NG/ML (<3.6); CREATININE FOR GFR 1.16 MG/DL (0.70-1.30); GLOMERULAR FILTRATION RATE > 60.0 (>42); GLUCOSE, FASTING 107 MG/DL (74-106); POTASSIUM SERUM 4.4 MMOL/L (3.5-5.1); SODIUM LEVEL 142 MMOL/L (136-145)
[2023-04-29 15:56] LABS: FREE T4 0.93 NG/DL (0.89-1.76)
[2023-04-29 15:57] LABS: THYROID STIMULATING HORMONE 6.824 uIU/ML (0.55-4.78)
[2023-04-29 15:59] LABS: CPK CREATINE PHOSPHOKINASE 83 U/L (46-171)
[2023-04-29 16:37] LABS: INR 1.99; PROTHROMBIN TIME 21.9 SECONDS (12.5-14.5)
[2023-04-29] MEDS ORDERED: MED REC IN PROGRESS XX SCH (16:50)
[2023-04-29] MEDS: MORPHINE 4 MG/ML 1ML VIAL IV ONE (17:18)
[2023-04-29 17:27] LABS: CK-MB VALUE MASS < 1.0 NG/ML (<3.6)
[2023-04-29 17:28] LABS: CPK CREATINE PHOSPHOKINASE 72 U/L (46-171); MB/CK RELATIVE INDEX 1.38 (< OR =4)
[2023-04-29] MEDS ORDERED: MORPHINE 2 MG/ML 1ML VIAL IV PRN (17:40)
[2023-04-29] MEDS ORDERED: SENN-23 PO (17:50)
[2023-04-29] MEDS ORDERED: TOPR25TA PO (17:50)
[2023-04-29] MEDS ORDERED: med rec comment (17:53)
[2023-04-29] MEDS ORDERED: HOME MED LIST COMPLETE! XX SCH (18:05)
[2023-04-29] MEDS ORDERED: ALBUTEROL 90 MCG/ACT 8GM HFA INHALER INH PRN (19:35)
[2023-04-29] MEDS: PERCOCET 5MG/325MG TAB PO PRN (20:19)
[2023-04-29] MEDS: GABAPENTIN 300 MG CAP PO SCH (21:50)
[2023-04-30] MEDS: diazePAM 5MG TABLET PO PRN (03:39)
[2023-04-30] MEDS: MORPHINE 2 MG/ML 1ML VIAL IV PRN (06:15)
[2023-04-30 06:32] LABS: HEMATOCRIT 44.4 % (42.0-52.0); HEMOGLOBIN 14.4 g/dl (13.5-17.5); MEAN CORPUSCULAR HEMOGLOBIN 30.3 pg (27.0-33.0); MEAN CORPUSCULAR HGB CONC 32.4 g/dl (32.0-36.5); MEAN CORPUSCULAR VOLUME 93.5 fl (80.0-96.0); PLATELET COUNT, AUTOMATED 139 10^3/uL (150-450); RED BLOOD COUNT 4.75 10^6/uL (4.30-6.10)
[2023-04-30 07:05] LABS: BLOOD UREA NITROGEN 16 MG/DL (9-23); CALCIUM LEVEL 8.1 MG/DL (8.3-10.6); CARBON DIOXIDE LEVEL 27 MMOL/L (20-31); CHLORIDE LEVEL 109 MMOL/L (98-107); CREATININE FOR GFR 1.06 MG/DL (0.70-1.30); GLOMERULAR FILTRATION RATE > 60.0 (>42); GLUCOSE, FASTING 96 MG/DL (74-106); MAGNESIUM LEVEL 1.9 MG/DL (1.8-2.4); POTASSIUM SERUM 3.7 MMOL/L (3.5-5.1); SODIUM LEVEL 140 MMOL/L (136-145)
[2023-04-30] MEDS: WARFARIN SOD 2MG TAB PO SCH (09:06)
[2023-04-30 17:11] VITALS: BP 114/56; O2SAT 94
[2023-04-30 20:17] VITALS: BP 103/51; TEMP 97.2; O2SAT 97
[2023-04-30] MEDS: GABAPENTIN 300 MG CAP PO SCH (21:04)
[2023-05-01] VITALS (31 sets, daily range): BP systolic 107–132; BP diastolic 51–59; TEMP 97.1–98.3; O2SAT 91–98
[2023-05-01] MEDS: ACETAMINOPHEN *IV* 1,000 MG in IV 1 EA IV ONE (01:23)
[2023-05-01] MEDS: BENZONATATE 100MG CAPSULE PO ONE (01:24)
[2023-05-01] MEDS: WARFARIN SOD 3MG TAB PO SCH (08:08)
[2023-05-01 10:20] LABS: INR 1.73; PROTHROMBIN TIME 19.7 SECONDS (12.5-14.5)
[2023-05-01] MEDS: PERCOCET 5MG/325MG TAB PO PRN (10:22)
[2023-05-01] MEDS: LIDOCAINE 5% (LIDODERM) PATCH TD SCH (10:22)
[2023-05-01] MEDS: GABAPENTIN 300 MG CAP PO SCH (12:10)
[2023-05-01] MEDS: BENZONATATE 100MG CAPSULE PO SCH (22:27)
[2023-05-01] MEDS: ACETAMINOPHEN TAB 650MG DOSE (2X325MG) PO PRN (22:31)
[2023-05-02] VITALS (20 sets, daily range): BP systolic 112–134; BP diastolic 58–63; TEMP 97.2–98.2; O2SAT 91–98
[2023-05-02 08:14] LABS: INR 1.76
[2023-05-02] MEDS ORDERED: MIRALAX *UNIT DOSE* 17GM PACKET PO PRN (09:20)
[2023-05-02] MEDS: APIXABAN 5 MG TAB (ELIQUIS) PO SCH (10:22)
[2023-05-02] MEDS: SENNA 8.6 MG TAB (SENOKOT) PO PRN (11:37)
[2023-05-02] MEDS: MIDODRINE 2.5 MG TAB PO SCH (13:48)
[2023-05-02] MEDS: LIDOCAINE 1% MDV 20ML VIAL SC ONE (15:15)
[2023-05-02] MEDS: TRIAMCINOLONE ACETONIDE SUSP 40MG/ML 1ML VIAL IA ONE (15:15)
[2023-05-03] VITALS: BP 137/67; TEMP 97.9; O2SAT 94
[2023-05-03 03:21] VITALS: BP 141/67; TEMP 97.7; O2SAT 94
[2023-05-03 07:39] LABS: INR 2.28; PROTHROMBIN TIME 24.3 SECONDS (12.5-14.5)
[2023-05-03 07:43] LABS: BASO % 0.3 % (0.0-1.0); EOS % 0.4 % (0.0-3.0); HEMATOCRIT 43.1 % (42.0-52.0); HEMOGLOBIN 14.1 g/dl (13.5-17.5); LYMPH # 0.6 10^3/uL (1.5-5.0); LYMPH % 8.8 % (24.0-44.0); MEAN CORPUSCULAR HEMOGLOBIN 30.5 pg (27.0-33.0); MEAN CORPUSCULAR HGB CONC 32.7 g/dl (32.0-36.5); MEAN CORPUSCULAR VOLUME 93.1 fl (80.0-96.0); MONO # 0.3 10^3/uL (0.0-0.8); MONO % 4.1 % (2.0-8.0); NEUTROPHILS # 5.9 10^3/uL (1.5-8.5); NEUTROPHILS % 86.1 % (36.0-66.0); PLATELET COUNT, AUTOMATED 144 10^3/uL (150-450); RED BLOOD COUNT 4.63 10^6/uL (4.30-6.10); WHITE BLOOD COUNT 6.9 10^3/uL (4.0-10.0)
[2023-05-03 07:44] LABS: BLOOD UREA NITROGEN 13 MG/DL (9-23); CALCIUM LEVEL 8.5 MG/DL (8.3-10.6); CARBON DIOXIDE LEVEL 30 MMOL/L (20-31); CHLORIDE LEVEL 106 MMOL/L (98-107); GLOMERULAR FILTRATION RATE > 60.0 (>42); GLUCOSE, FASTING 114 MG/DL (74-106); POTASSIUM SERUM 4.6 MMOL/L (3.5-5.1); SODIUM LEVEL 136 MMOL/L (136-145)
[2023-05-03 07:57] VITALS: BP 132/60; TEMP 97.4; O2SAT 94
[2023-05-03] MEDS: PERCOCET 5MG/325MG TAB PO PRN (09:10)
[2023-05-03 11:38] VITALS: BP 147/66; TEMP 96.6; O2SAT 97
[2023-05-03] MEDS ORDERED: WARFARIN SOD 2MG TAB PO SCH (17:00)
[2023-05-03 19:47] VITALS: BP 131/66; TEMP 98.5; O2SAT 95
[2023-05-04] VITALS (16 sets, daily range): BP systolic 129–162; BP diastolic 60–71; TEMP 96.6–98.2; O2SAT 94–99
[2023-05-04 06:02] LABS: INR 1.84; PROTHROMBIN TIME 20.7 SECONDS (12.5-14.5)
[2023-05-04] MEDS ORDERED: DICLOFENAC EPOLAMINE 1.3% PATCH TOP SCH (08:05)
[2023-05-04] MEDS: DICLOFENAC EPOLAMINE 1.3% PATCH TOP SCH (09:26)
[2023-05-04] MEDS: ANALGESIC BALM CRM 3OZ TOP SCH (11:47)
[2023-05-04] MEDS: KETOROLAC 30 MG/ML 1ML VIAL IV ONE (11:47)
[2023-05-04 12:48] LABS: HEMATOCRIT 47.5 % (42.0-52.0); MEAN CORPUSCULAR HEMOGLOBIN 30.2 pg (27.0-33.0); MEAN CORPUSCULAR HGB CONC 31.6 g/dl (32.0-36.5); MEAN CORPUSCULAR VOLUME 95.6 fl (80.0-96.0); PLATELET COUNT, AUTOMATED 136 10^3/uL (150-450); RED BLOOD COUNT 4.97 10^6/uL (4.30-6.10); WHITE BLOOD COUNT 6.9 10^3/uL (4.0-10.0)
[2023-05-04 13:26] LABS: ALBUMIN 3.4 G/DL (3.2-5.2); ALKALINE PHOSPHATASE 65 U/L (46-116); ALT/SGPT 12 U/L (7.0-40); AST/SGOT < 8 U/L (<34); BILIRUBIN,TOTAL 0.4 MG/DL (0.3-1.2); BLOOD UREA NITROGEN 19 MG/DL (9-23); CALCIUM LEVEL 8.9 MG/DL (8.3-10.6); CARBON DIOXIDE LEVEL 29 MMOL/L (20-31); CHLORIDE LEVEL 105 MMOL/L (98-107); CHOLESTEROL LEVEL 139 MG/DL (<200); CHOLESTEROL RISK RATIO 3.31 (<5); CREATININE FOR GFR 0.96 MG/DL (0.70-1.30); GLOMERULAR FILTRATION RATE > 60.0 (>42); GLUCOSE, FASTING 116 MG/DL (74-106); HDL CHOLESTEROL 41.9 MG/DL (>40); LDL CHOLESTEROL 68.9 MG/DL (<100); NON-HDL-C 97.1 MG/DL; POTASSIUM SERUM 4.3 MMOL/L (3.5-5.1); SODIUM LEVEL 137 MMOL/L (136-145); TOTAL PROTEIN 6.5 G/DL (5.7-8.2); TRIGLYCERIDES LEVEL 141 MG/DL (<150)
[2023-05-04] MEDS: oxyCODONE 5MG TAB PO ONE (14:52)
[2023-05-04] MEDS: ACETAMINOPHEN TAB 650MG DOSE (2X325MG) PO SCH (14:52)
[2023-05-04] MEDS: GABAPENTIN 400MG CAP PO SCH (16:03)
[2023-05-04] MEDS: PERCOCET 5MG/325MG TAB PO PRN (18:29)
[2023-05-04] MEDS: APIXABAN 5 MG TAB (ELIQUIS) PO SCH (21:12)
[2023-05-04] MEDS: ACETAMINOPHEN 325 MG TAB PO SCH (23:03)
[2023-05-05 06:00] VITALS: BP 131/65; TEMP 98.2; O2SAT 95
[2023-05-05 14:00] VITALS: BP 125/56; TEMP 98.2; O2SAT 93
[2023-05-05] MEDS: methylPREDNISolone 125MG 2ML VIAL IV ONE (18:03)
[2023-05-05] MEDS: GABAPENTIN 100 MG CAP PO SCH (19:47)
[2023-05-05] MEDS: CYCLOBENZAPRINE 10MG TABLET PO SCH (19:48)
[2023-05-06 05:00] VITALS: BP 135/63; TEMP 97.9; O2SAT 95
[2023-05-06] MEDS: KETOROLAC 30 MG/ML 1ML VIAL IV ONE (23:01)
[2023-05-07 06:00] VITALS: BP 105/54; TEMP 98.6; O2SAT 95
[2023-05-08 06:00] VITALS: BP 129/60; TEMP 98.4; O2SAT 95
[2023-05-09 05:00] VITALS: BP 129/59; TEMP 98.6; O2SAT 97
[2023-05-10 06:04] VITALS: BP 130/65; TEMP 97.7; O2SAT 97
[2023-05-10] MEDS: guaiFENesin SYRUP 200MG 10ML UDC PO PRN (12:00)
[2023-05-11 05:00] VITALS: BP 119/53; TEMP 97.9; O2SAT 95
[2023-05-12 06:00] VITALS: BP 121/69; TEMP 98.6; O2SAT 92
[2023-05-13 06:00] VITALS: BP 133/66; TEMP 97.9; O2SAT 98
[2023-05-14 06:00] VITALS: BP 110/60; TEMP 98.4; O2SAT 95
[2023-05-14 14:52] LABS: SOURCE, BODY FLUID LFT KNEE; SYNOVIAL FLUID COLOR RED (COLORLESS)
[2023-05-14 15:11] LABS: CRYSTALS, BODY FLUID NONE SEEN (NONE SEEN); SOURCE, BODY FLUID CRYSTALS LFT KNEE
[2023-05-15 05:39] VITALS: BP 117/61; TEMP 98.4; O2SAT 93
[2023-05-16 04:48] VITALS: BP 132/64; TEMP 98.4; O2SAT 94
[2023-05-16] MEDS: PERCOCET 5MG/325MG TAB PO PRN (18:06)
[2023-05-17 05:15] VITALS: BP 118/57; TEMP 97.2; O2SAT 95
[2023-05-17] MEDS ORDERED: ELIQ5TAB PO (07:18)
[2023-05-17] MEDS ORDERED: XARE20TA PO (10:39)
[2023-05-17 12:14] LABS: HEMATOCRIT 52.2 % (42.0-52.0); HEMOGLOBIN 16.5 g/dl (13.5-17.5); MEAN CORPUSCULAR HEMOGLOBIN 31.1 pg (27.0-33.0); MEAN CORPUSCULAR HGB CONC 31.6 g/dl (32.0-36.5); MEAN CORPUSCULAR VOLUME 98.3 fl (80.0-96.0); PLATELET COUNT, AUTOMATED 136 10^3/uL (150-450); RED BLOOD COUNT 5.31 10^6/uL (4.30-6.10); WHITE BLOOD COUNT 10.3 10^3/uL (4.0-10.0)
[2023-05-17 12:53] LABS: PROCALCITONIN <0.04 ng/ml
[2023-05-17] MEDS ORDERED: IBUPROFEN 400MG TAB PO PRN (13:20)
[2023-05-17] MEDS: CEFDINIR 300 MG CAP (OMNICEF) PO SCH (15:38)
[2023-05-17] MEDS: LR 1,000 ML IV ONE (15:39)
[2023-05-17] MEDS: metroNIDAZOLE (FLAGYL) 500MG TABLET PO SCH (15:39)
[2023-05-17 20:00] VITALS: BP 120/65; TEMP 98.7; O2SAT 96
[2023-05-17] MEDS: OMEPRAZOLE 20MG CAP PO SCH (20:51)
[2023-05-18 00:49] VITALS: TEMP 98.3
[2023-05-18 06:00] VITALS: BP 134/67; TEMP 97.9; O2SAT 94
[2023-05-18 06:38] LABS: BASO % 0.3 % (0.0-1.0); EOS % 0.3 % (0.0-3.0); LYMPH # 1.2 10^3/uL (1.5-5.0); LYMPH % 11.4 % (24.0-44.0); MEAN CORPUSCULAR HEMOGLOBIN 31.3 pg (27.0-33.0); MEAN CORPUSCULAR HGB CONC 32.8 g/dl (32.0-36.5); MEAN CORPUSCULAR VOLUME 95.6 fl (80.0-96.0); MONO # 0.7 10^3/uL (0.0-0.8); MONO % 6.7 % (2.0-8.0); NEUTROPHILS # 8.4 10^3/uL (1.5-8.5); NEUTROPHILS % 80.9 % (36.0-66.0); PLATELET COUNT, AUTOMATED 129 10^3/uL (150-450); RED BLOOD COUNT 4.53 10^6/uL (4.30-6.10); WHITE BLOOD COUNT 10.4 10^3/uL (4.0-10.0)
[2023-05-18 06:55] LABS: HEMATOCRIT 43.3 % (42.0-52.0); HEMOGLOBIN 14.2 g/dl (13.5-17.5)
[2023-05-18] MEDS ORDERED: MIRA1POW3 PO (10:11)
[2023-05-18] MEDS ORDERED: METR-265 PO (10:11)
[2023-05-18] MEDS ORDERED: GABA-284 PO (10:11)
[2023-05-18] MEDS ORDERED: PERCOCET PO (10:11)
[2023-05-18] MEDS ORDERED: CEFD300CAP PO (10:11)
[2023-05-18] MEDS ORDERED: OMEP-173 PO (10:11)
[2023-05-18] MEDS ORDERED: CYCL10TA20 PO (10:11)
[2023-05-18] MEDS ORDERED: SENO8.6T5 PO (10:11)
== END 2023-05-18 18:02 | disposition home or self-care (01) | DRG 351 ==
LOC: M ED 14:47 → EDBD 14:47 → M ED INP 18:39 → ENRESERV 04-30 14:03 → M PCU 04-30 17:07 → M MSPAV 05-04 22:14
PROVIDERS: ADMIT Internal Medicine; ATTEND Internal Medicine
PROC: 0S9C3ZZ Drainage of Right Knee Joint, Percutaneous Approach (ICD-10-PCS; principal; 2023-05-14)
PROC: 0S9D3ZZ Drainage of Left Knee Joint, Percutaneous Approach (ICD-10-PCS; 2023-05-14)
DX: M15.0 Primary generalized (osteo)arthritis (principal); I48.91 Unspecified atrial fibrillation; R00.1 Bradycardia, unspecified; F32.A Depression, unspecified; F41.9 Anxiety disorder, unspecified; R55 Syncope and collapse; J45.909 Unspecified asthma, uncomplicated; K04.7 Periapical abscess without sinus; Z79.01 Long term (current) use of anticoagulants; Z91.040 Latex allergy status; Z88.0 Allergy status to penicillin; Z88.5 Allergy status to narcotic agent; Z88.8 Allergy status to other drugs, medicaments and biological substances; Z91.012 Allergy to eggs; I44.0 Atrioventricular block, first degree; Z86.718 Personal history of other venous thrombosis and embolism; Z96.653 Presence of artificial knee joint, bilateral

== ENCOUNTER → 2023-07-07 | Outpatient (CLI) | payer OTHER, MEDICARE ==
[~2023-07-07] MED LIST changes: +CEFD300CAP PO; +ELIQ5TAB PO; +GABA-284 PO; +METR-265 PO; +MIRA33506 PO; +OMEP-173 PO; +SENN-130 PO; +SENN-23 PO; -SENN1TAB94 PO; +SENO8.6T5 PO; +TOPR25TA PO; +XARE20TA PO; +med rec comment
[2023-07-07 18:06] LABS: SYNOVIAL FLUID COLOR RED (COLORLESS)
[2023-07-07 18:08] LABS: SOURCE, BODY FLUID LFT KNEE
== END ==
LOC: M SOG 07:59
PROVIDERS: ATTEND Orthopaedic Surgery
DX: M25.562 Pain in left knee (principal)

== ENCOUNTER 2023-07-15 18:30 | Inpatient (IN) | payer OTHER, MEDICARE ==
[~2023-07-15] VITALS: Ht 182.9 cm; Wt 114.0 kg
[2023-07-15] MEDS: MORPHINE 2 MG/ML 1ML VIAL IV ONE ×2 (21:54→23:47)
[2023-07-15 22:15] LABS: BASO # 0.1 10^3/uL (0.0-0.2); BASO % 0.6 % (0.0-1.0); EOS # 0.1 10^3/uL (0.0-0.5); EOS % 1.2 % (0.0-3.0); HEMATOCRIT 50.5 % (42.0-52.0); HEMOGLOBIN 16.6 g/dl (13.5-17.5); LYMPH # 1.3 10^3/uL (1.5-5.0); LYMPH % 16.4 % (24.0-44.0); MEAN CORPUSCULAR HEMOGLOBIN 30.7 pg (27.0-33.0); MEAN CORPUSCULAR HGB CONC 32.9 g/dl (32.0-36.5); MEAN CORPUSCULAR VOLUME 93.5 fl (80.0-96.0); MONO # 0.5 10^3/uL (0.0-0.8); MONO % 6.1 % (2.0-8.0); NEUTROPHILS # 6.1 10^3/uL (1.5-8.5); NEUTROPHILS % 75.3 % (36.0-66.0); PLATELET COUNT, AUTOMATED 195 10^3/uL (150-450); WHITE BLOOD COUNT 8.2 10^3/uL (4.0-10.0)
[2023-07-15 22:29] LABS: INR 2.24; PARTIAL THROMBOPLASTIN TIME 55.1 SECONDS (24.8-34.2)
[2023-07-16] MEDS ORDERED: MOM 30ML SUSPENSION UDC PO PRN (02:30)
[2023-07-16] MEDS ORDERED: MAALOX 30 ML SUSP *UDC PO PRN (02:30)
[2023-07-16] MEDS ORDERED: ACETAMINOPHEN TAB 650MG DOSE (2X325MG) PO PRN (02:30)
[2023-07-16] MEDS ORDERED: ALBUTEROL 90 MCG/ACT 8GM HFA INHALER INH PRN (02:40)
[2023-07-16] MEDS: MORPHINE 2 MG/ML 1ML VIAL IV PRN (05:14)
[2023-07-16 05:57] LABS: ALBUMIN 3.3 G/DL (3.2-5.2); ALKALINE PHOSPHATASE 79 U/L (46-116); ALT/SGPT 16 U/L (7.0-40); AST/SGOT 12 U/L (<34); BILIRUBIN,TOTAL 1.2 MG/DL (0.3-1.2); BLOOD UREA NITROGEN 17 MG/DL (9-23); CALCIUM LEVEL 8.9 MG/DL (8.3-10.6); CARBON DIOXIDE LEVEL 30 MMOL/L (20-31); CHLORIDE LEVEL 104 MMOL/L (98-107); CREATININE FOR GFR 1.06 MG/DL (0.70-1.30); GLOMERULAR FILTRATION RATE > 60.0 (>42); GLUCOSE, FASTING 97 MG/DL (74-106); POTASSIUM SERUM 3.8 MMOL/L (3.5-5.1); SODIUM LEVEL 134 MMOL/L (136-145)
[2023-07-16] MEDS ORDERED: MED REC IN PROGRESS XX SCH (07:25)
[2023-07-16] MEDS: DOCUSATE SODIUM 100MG CAPSULE PO SCH (08:10)
[2023-07-16] MEDS ORDERED: GABA-1171 PO ×2 (11:33)
[2023-07-16] MEDS ORDERED: TRAM50TA2 PO ×2 (11:33)
[2023-07-16] MEDS ORDERED: CETI-24 PO (11:33)
[2023-07-16] MEDS ORDERED: RA S8.6T3 PO (11:33)
[2023-07-16] MEDS ORDERED: SERT50TA29 PO (11:33)
[2023-07-16] MEDS ORDERED: DIAZ5TAB PO (11:33)
[2023-07-16] MEDS ORDERED: XARE20TA PO (11:33)
[2023-07-16] MEDS ORDERED: ADV250INH INH (11:33)
[2023-07-16] MEDS ORDERED: CYCL-707 PO ×2 (11:33)
[2023-07-16] MEDS ORDERED: HOME MED LIST COMPLETE! XX SCH (11:35)
[2023-07-16] MEDS: traMADol 50 MG TAB PO PRN (11:43)
[2023-07-16 14:00] VITALS: BP 115/56; TEMP 98.1; O2SAT 97
[2023-07-16 15:56] LABS: SOURCE, BODY FLUID LFT KNEE; SYNOVIAL FLUID COLOR BROWN (COLORLESS)
[2023-07-16 16:07] LABS: CRYSTALS, BODY FLUID NONE SEEN (NONE SEEN); SOURCE, BODY FLUID CRYSTALS LFT KNEE
[2023-07-16 20:00] VITALS: BP 101/51; TEMP 97.2; O2SAT 96
[2023-07-16] MEDS: OMEPRAZOLE 20MG CAP PO SCH (21:30)
[2023-07-17] VITALS (7 sets, daily range): BP systolic 106–144; BP diastolic 56–67; TEMP 97–98.2; O2SAT 93–98
[2023-07-18] VITALS (13 sets, daily range): BP systolic 85–149; BP diastolic 47–68; TEMP 97.1–97.6; O2SAT 92–99
[2023-07-18] MEDS ORDERED: NITROGLYCERIN 0.4MG SUBL TABLET As Ordered ONE (17:12)
[2023-07-18] MEDS: NITROGLYCERIN 0.4MG SUBL TABLET SL SCH (17:13)
[2023-07-18] MEDS ORDERED: ISOVUE-370 76% 100ML VIAL As Ordered ONE (17:33)
[2023-07-18] MEDS: MIDODRINE 5 MG TAB PO ONE (17:45)
[2023-07-18] MEDS: HEPARIN DRIP 25,000 UNITS in IV 1 EA IV SCH (17:47)
[2023-07-18] MEDS: HEPARIN SOD (PORCINE) 5000UNITS/ML 1ML VIAL/SYRINGE IV ONE (18:00)
[2023-07-18 18:05] LABS: HEMATOCRIT 46.1 % (42.0-52.0); HEMOGLOBIN 15.5 g/dl (13.5-17.5); MEAN CORPUSCULAR HEMOGLOBIN 31.1 pg (27.0-33.0); MEAN CORPUSCULAR HGB CONC 33.6 g/dl (32.0-36.5); MEAN CORPUSCULAR VOLUME 92.4 fl (80.0-96.0); PLATELET COUNT, AUTOMATED 163 10^3/uL (150-450); RED BLOOD COUNT 4.99 10^6/uL (4.30-6.10); WHITE BLOOD COUNT 9.4 10^3/uL (4.0-10.0)
[2023-07-18 18:09] LABS: MB/CK RELATIVE INDEX 1.78 (< OR =4)
[2023-07-18] MEDS: NS 1,000 ML IV ONE (18:32)
[2023-07-18] MEDS: KETOROLAC 30 MG/ML 1ML VIAL IV ONE (19:47)
[2023-07-18] MEDS: NS 1,000 ML IV SCH (20:26)
[2023-07-18] MEDS: traMADol 50 MG TAB PO ONE (20:26)
[2023-07-19] VITALS (8 sets, daily range): BP systolic 111–148; BP diastolic 59–70; TEMP 96.2–97.9; O2SAT 97–100
[2023-07-19 00:59] LABS: CK-MB VALUE MASS 1.1 NG/ML (<3.6)
[2023-07-19 04:37] LABS: CK-MB VALUE MASS < 1.0 NG/ML (<3.6)
[2023-07-19 04:38] LABS: CPK CREATINE PHOSPHOKINASE 44 U/L (46-171); MB/CK RELATIVE INDEX 2.27 (< OR =4)
[2023-07-19 09:54] LABS: INR 1.11; PARTIAL THROMBOPLASTIN TIME 98.1 SECONDS (24.8-34.2)
[2023-07-19 12:34] LABS: MB/CK RELATIVE INDEX 1.75 (< OR =4)
[2023-07-19 18:39] LABS: CK-MB VALUE MASS 1.4 NG/ML (<3.6)
[2023-07-19 18:40] LABS: MB/CK RELATIVE INDEX 2.05 (< OR =4)
[2023-07-19 20:16] LABS: BASO % 0.5 % (0.0-1.0); EOS # 0.1 10^3/uL (0.0-0.5); EOS % 1.7 % (0.0-3.0); HEMATOCRIT 44.1 % (42.0-52.0); HEMOGLOBIN 14.3 g/dl (13.5-17.5); LYMPH # 1.1 10^3/uL (1.5-5.0); LYMPH % 18.6 % (24.0-44.0); MEAN CORPUSCULAR HGB CONC 32.4 g/dl (32.0-36.5); MEAN CORPUSCULAR VOLUME 95.7 fl (80.0-96.0); MONO # 0.4 10^3/uL (0.0-0.8); MONO % 6.1 % (2.0-8.0); NEUTROPHILS # 4.4 10^3/uL (1.5-8.5); NEUTROPHILS % 72.8 % (36.0-66.0); PLATELET COUNT, AUTOMATED 140 10^3/uL (150-450); RED BLOOD COUNT 4.61 10^6/uL (4.30-6.10); WHITE BLOOD COUNT 6.1 10^3/uL (4.0-10.0)
[2023-07-19 20:42] LABS: BLOOD UREA NITROGEN 11 MG/DL (9-23); CALCIUM LEVEL 8.3 MG/DL (8.3-10.6); CARBON DIOXIDE LEVEL 29 MMOL/L (20-31); CHLORIDE LEVEL 104 MMOL/L (98-107); GLOMERULAR FILTRATION RATE > 60.0 (>42); GLUCOSE, FASTING 112 MG/DL (74-106); POTASSIUM SERUM 4.3 MMOL/L (3.5-5.1); SODIUM LEVEL 137 MMOL/L (136-145)
[2023-07-19] MEDS: diazePAM 5MG TABLET PO PRN (22:42)
[2023-07-20 00:42] LABS: CK-MB VALUE MASS < 1.0 NG/ML (<3.6)
[2023-07-20 00:43] LABS: CPK CREATINE PHOSPHOKINASE 51 U/L (46-171); MB/CK RELATIVE INDEX 1.96 (< OR =4)
[2023-07-20 05:43] VITALS: BP 157/74; TEMP 98.1; O2SAT 98
[2023-07-20 06:41] LABS: BASO # 0.1 10^3/uL (0.0-0.2); BASO % 0.9 % (0.0-1.0); EOS # 0.1 10^3/uL (0.0-0.5); EOS % 1.9 % (0.0-3.0); HEMATOCRIT 41.8 % (42.0-52.0); HEMOGLOBIN 13.9 g/dl (13.5-17.5); LYMPH # 1.3 10^3/uL (1.5-5.0); LYMPH % 22.4 % (24.0-44.0); MEAN CORPUSCULAR HEMOGLOBIN 31.2 pg (27.0-33.0); MEAN CORPUSCULAR HGB CONC 33.3 g/dl (32.0-36.5); MEAN CORPUSCULAR VOLUME 93.9 fl (80.0-96.0); MONO # 0.4 10^3/uL (0.0-0.8); MONO % 7.2 % (2.0-8.0); NEUTROPHILS # 3.9 10^3/uL (1.5-8.5); NEUTROPHILS % 67.4 % (36.0-66.0); PLATELET COUNT, AUTOMATED 146 10^3/uL (150-450); RED BLOOD COUNT 4.45 10^6/uL (4.30-6.10); WHITE BLOOD COUNT 5.7 10^3/uL (4.0-10.0)
[2023-07-20 06:54] LABS: INR 1.06; PARTIAL THROMBOPLASTIN TIME 75.2 SECONDS (24.8-34.2); PROTHROMBIN TIME 13.5 SECONDS (12.5-14.5)
[2023-07-20 07:16] LABS: BLOOD UREA NITROGEN 11 MG/DL (9-23); CALCIUM LEVEL 8.3 MG/DL (8.3-10.6); CARBON DIOXIDE LEVEL 30 MMOL/L (20-31); CHLORIDE LEVEL 104 MMOL/L (98-107); CREATININE FOR GFR 0.92 MG/DL (0.70-1.30); GLOMERULAR FILTRATION RATE > 60.0 (>42); GLUCOSE, FASTING 99 MG/DL (74-106); POTASSIUM SERUM 4.1 MMOL/L (3.5-5.1); SODIUM LEVEL 137 MMOL/L (136-145)
[2023-07-20 07:29] VITALS: BP 144/80; TEMP 97.2; O2SAT 97
[2023-07-20] MEDS: dilTIAZem 30 MG TAB PO STA (14:42)
[2023-07-20] MEDS: dilTIAZem 30 MG TAB PO SCH (18:39)
[2023-07-20 19:43] VITALS: BP 138/60; TEMP 97.2; O2SAT 98
[2023-07-20 23:23] VITALS: BP 122/58; TEMP 97; O2SAT 96
[2023-07-21] VITALS (23 sets, daily range): BP systolic 98–155; BP diastolic 7–66; PULSE 72; TEMP 96.8–98.4; O2SAT 87–100
[2023-07-21 05:42] LABS: BASO % 0.7 % (0.0-1.0); EOS # 0.1 10^3/uL (0.0-0.5); EOS % 1.9 % (0.0-3.0); HEMATOCRIT 41.7 % (42.0-52.0); HEMOGLOBIN 13.9 g/dl (13.5-17.5); LYMPH # 1.3 10^3/uL (1.5-5.0); LYMPH % 22.2 % (24.0-44.0); MEAN CORPUSCULAR HEMOGLOBIN 31.2 pg (27.0-33.0); MEAN CORPUSCULAR HGB CONC 33.3 g/dl (32.0-36.5); MEAN CORPUSCULAR VOLUME 93.7 fl (80.0-96.0); MONO # 0.4 10^3/uL (0.0-0.8); MONO % 7.4 % (2.0-8.0); NEUTROPHILS # 3.9 10^3/uL (1.5-8.5); NEUTROPHILS % 67.5 % (36.0-66.0); PLATELET COUNT, AUTOMATED 150 10^3/uL (150-450); RED BLOOD COUNT 4.45 10^6/uL (4.30-6.10); WHITE BLOOD COUNT 5.8 10^3/uL (4.0-10.0)
[2023-07-21 06:26] LABS: BLOOD UREA NITROGEN 12 MG/DL (9-23); CALCIUM LEVEL 8.2 MG/DL (8.3-10.6); CARBON DIOXIDE LEVEL 30 MMOL/L (20-31); CHLORIDE LEVEL 108 MMOL/L (98-107); CREATININE FOR GFR 0.94 MG/DL (0.70-1.30); GLOMERULAR FILTRATION RATE > 60.0 (>42); GLUCOSE, FASTING 102 MG/DL (74-106); POTASSIUM SERUM 4.2 MMOL/L (3.5-5.1); SODIUM LEVEL 140 MMOL/L (136-145)
[2023-07-21] MEDS: NITROGLYCERIN 0.4MG SUBL TABLET SL PRN (15:51)
[2023-07-21 21:32] LABS: INR 1.03; PARTIAL THROMBOPLASTIN TIME 38.4 SECONDS (24.8-34.2); PROTHROMBIN TIME 13.2 SECONDS (12.5-14.5)
[2023-07-21] MEDS: HEPARIN SOD (PORCINE) 5000UNITS/ML 1ML VIAL/SYRINGE IV PRN (22:36)
[2023-07-22] VITALS (7 sets, daily range): BP systolic 114–152; BP diastolic 53–71; TEMP 97.3–98.6; O2SAT 92–96
[2023-07-22 04:47] LABS: BASO % 0.6 % (0.0-1.0); EOS # 0.1 10^3/uL (0.0-0.5); EOS % 1.9 % (0.0-3.0); HEMATOCRIT 39.7 % (42.0-52.0); HEMOGLOBIN 13.3 g/dl (13.5-17.5); LYMPH # 1.4 10^3/uL (1.5-5.0); LYMPH % 21.6 % (24.0-44.0); MEAN CORPUSCULAR HEMOGLOBIN 30.9 pg (27.0-33.0); MEAN CORPUSCULAR HGB CONC 33.5 g/dl (32.0-36.5); MEAN CORPUSCULAR VOLUME 92.1 fl (80.0-96.0); MONO # 0.5 10^3/uL (0.0-0.8); MONO % 7.8 % (2.0-8.0); NEUTROPHILS # 4.4 10^3/uL (1.5-8.5); NEUTROPHILS % 67.6 % (36.0-66.0); PLATELET COUNT, AUTOMATED 156 10^3/uL (150-450); RED BLOOD COUNT 4.31 10^6/uL (4.30-6.10); WHITE BLOOD COUNT 6.5 10^3/uL (4.0-10.0)
[2023-07-22 04:59] LABS: INR 1.03; PROTHROMBIN TIME 13.2 SECONDS (12.5-14.5)
[2023-07-22 05:32] LABS: BLOOD UREA NITROGEN 13 MG/DL (9-23); CALCIUM LEVEL 8.3 MG/DL (8.3-10.6); CARBON DIOXIDE LEVEL 31 MMOL/L (20-31); CHLORIDE LEVEL 104 MMOL/L (98-107); CREATININE FOR GFR 0.99 MG/DL (0.70-1.30); GLOMERULAR FILTRATION RATE > 60.0 (>42); GLUCOSE, FASTING 105 MG/DL (74-106); POTASSIUM SERUM 4.4 MMOL/L (3.5-5.1); SODIUM LEVEL 139 MMOL/L (136-145)
[2023-07-22 12:09] LABS: INR 1.04; PARTIAL THROMBOPLASTIN TIME 43.5 SECONDS (24.8-34.2); PROTHROMBIN TIME 13.3 SECONDS (12.5-14.5)
[2023-07-22] MEDS ORDERED: diphenhydrAMINE 50MG/ML VIAL IM ONE (12:35)
[2023-07-22] MEDS: OMEPRAZOLE 20MG CAP PO SCH (13:21)
[2023-07-22] MEDS: diphenhydrAMINE 50MG/ML VIAL IM ONE (13:22)
[2023-07-22] MEDS: dexAMETHasone 20MG/5ML VIAL IV ONE (13:33)
[2023-07-22] MEDS: RIVAROXABAN 20MG TAB (XARELTO) PO SCH (21:46)
[2023-07-23] VITALS (12 sets, daily range): BP systolic 106–150; BP diastolic 51–85; TEMP 97.6–98.1; O2SAT 72–96
[2023-07-23 06:19] LABS: BASO % 0.1 % (0.0-1.0); HEMATOCRIT 43.4 % (42.0-52.0); HEMOGLOBIN 14.7 g/dl (13.5-17.5); LYMPH # 0.5 10^3/uL (1.5-5.0); LYMPH % 5.2 % (24.0-44.0); MEAN CORPUSCULAR HEMOGLOBIN 31.1 pg (27.0-33.0); MEAN CORPUSCULAR HGB CONC 33.9 g/dl (32.0-36.5); MEAN CORPUSCULAR VOLUME 91.9 fl (80.0-96.0); MONO # 0.1 10^3/uL (0.0-0.8); MONO % 1.2 % (2.0-8.0); NEUTROPHILS # 9.3 10^3/uL (1.5-8.5); NEUTROPHILS % 92.9 % (36.0-66.0); PLATELET COUNT, AUTOMATED 201 10^3/uL (150-450); RED BLOOD COUNT 4.72 10^6/uL (4.30-6.10)
[2023-07-23 06:48] LABS: BLOOD UREA NITROGEN 13 MG/DL (9-23); CALCIUM LEVEL 9.3 MG/DL (8.3-10.6); CARBON DIOXIDE LEVEL 28 MMOL/L (20-31); CHLORIDE LEVEL 101 MMOL/L (98-107); GLOMERULAR FILTRATION RATE > 60.0 (>42); GLUCOSE, FASTING 125 MG/DL (74-106); SODIUM LEVEL 135 MMOL/L (136-145)
[2023-07-23 13:53] LABS: HEMATOCRIT 44.2 % (42.0-52.0); HEMOGLOBIN 14.7 g/dl (13.5-17.5); MEAN CORPUSCULAR HEMOGLOBIN 30.8 pg (27.0-33.0); MEAN CORPUSCULAR HGB CONC 33.3 g/dl (32.0-36.5); MEAN CORPUSCULAR VOLUME 92.7 fl (80.0-96.0); PLATELET COUNT, AUTOMATED 210 10^3/uL (150-450); RED BLOOD COUNT 4.77 10^6/uL (4.30-6.10); WHITE BLOOD COUNT 14.5 10^3/uL (4.0-10.0)
[2023-07-23 14:14] LABS: BLOOD UREA NITROGEN 15 MG/DL (9-23); CALCIUM LEVEL 9.7 MG/DL (8.3-10.6); CARBON DIOXIDE LEVEL 29 MMOL/L (20-31); CHLORIDE LEVEL 99 MMOL/L (98-107); CREATININE FOR GFR 0.98 MG/DL (0.70-1.30); GLOMERULAR FILTRATION RATE > 60.0 (>42); GLUCOSE, FASTING 170 MG/DL (74-106); POTASSIUM SERUM 4.3 MMOL/L (3.5-5.1); SODIUM LEVEL 134 MMOL/L (136-145)
[2023-07-23] MEDS: dilTIAZem 120MG **CD** CAPSULE PO SCH (18:37)
[2023-07-23] MEDS: guaiFENesin SYRUP 200MG 10ML UDC PO PRN (22:13)
[2023-07-24] VITALS: BP 148/64; TEMP 97.9; O2SAT 93
[2023-07-24 04:00] VITALS: BP 107/53; TEMP 97.2; O2SAT 95
[2023-07-24 04:07] LABS: BASO % 0.1 % (0.0-1.0); EOS % 0.1 % (0.0-3.0); HEMATOCRIT 42.9 % (42.0-52.0); HEMOGLOBIN 14.2 g/dl (13.5-17.5); LYMPH # 0.9 10^3/uL (1.5-5.0); MEAN CORPUSCULAR HGB CONC 33.1 g/dl (32.0-36.5); MEAN CORPUSCULAR VOLUME 93.7 fl (80.0-96.0); MONO # 0.6 10^3/uL (0.0-0.8); MONO % 3.7 % (2.0-8.0); NEUTROPHILS # 15.6 10^3/uL (1.5-8.5); NEUTROPHILS % 90.5 % (36.0-66.0); PLATELET COUNT, AUTOMATED 213 10^3/uL (150-450); RED BLOOD COUNT 4.58 10^6/uL (4.30-6.10); WHITE BLOOD COUNT 17.2 10^3/uL (4.0-10.0)
[2023-07-24 04:21] LABS: INR 2.22; PROTHROMBIN TIME 23.8 SECONDS (12.5-14.5)
[2023-07-24 04:36] LABS: BLOOD UREA NITROGEN 20 MG/DL (9-23); CALCIUM LEVEL 9.3 MG/DL (8.3-10.6); CARBON DIOXIDE LEVEL 27 MMOL/L (20-31); CHLORIDE LEVEL 103 MMOL/L (98-107); CREATININE FOR GFR 0.97 MG/DL (0.70-1.30); GLOMERULAR FILTRATION RATE > 60.0 (>42); GLUCOSE, FASTING 129 MG/DL (74-106); POTASSIUM SERUM 4.5 MMOL/L (3.5-5.1); SODIUM LEVEL 136 MMOL/L (136-145)
[2023-07-24 07:40] VITALS: BP 154/66; TEMP 97.3; O2SAT 94
[2023-07-24 09:32] VITALS: BP 154/66
[2023-07-24] MEDS: NEOSPORIN OINT 0.9 GM PKT TOP ONE (13:04)
[2023-07-24] MEDS ORDERED: OXYC1TAB23 PO (14:02)
[2023-07-24] MEDS ORDERED: CARD120C3 PO (14:13)
== END 2023-07-24 15:12 | disposition home health service (06) | DRG 384 ==
LOC: M ED 18:30 → EDBD 18:30 → M ED INP 18:31 → M MS4PR 07-16 13:38 → OBSVTOIN 07-17 08:57 → M PCU 07-18 17:41
PROVIDERS: ADMIT Preventive Medicine Undersea and Hyperbaric Medicine; ATTEND General Practice
PROC: 0S9D3ZZ Drainage of Left Knee Joint, Percutaneous Approach (ICD-10-PCS; 2023-07-16)
PROC: 05HM33Z Insertion of Infusion Device into Right Internal Jugular Vein, Percutaneous Approach (ICD-10-PCS; principal; 2023-07-18)
DX: S80.02XA Contusion of left knee, initial encounter (principal); I95.9 Hypotension, unspecified; I48.0 Paroxysmal atrial fibrillation; D68.32 Hemorrhagic disorder due to extrinsic circulating anticoagulants; E87.1 Hypo-osmolality and hyponatremia; J45.909 Unspecified asthma, uncomplicated; M48.061 Spinal stenosis, lumbar region without neurogenic claudication; R29.6 Repeated falls; W19.XXXA Unspecified fall, initial encounter; Z68.31 Body mass index [BMI] 31.0-31.9, adult; Z79.01 Long term (current) use of anticoagulants; Z96.652 Presence of left artificial knee joint; F43.10 Post-traumatic stress disorder, unspecified; M19.90 Unspecified osteoarthritis, unspecified site; M25.462 Effusion, left knee; Z91.040 Latex allergy status; Z88.0 Allergy status to penicillin; Z88.8 Allergy status to other drugs, medicaments and biological substances; Z88.5 Allergy status to narcotic agent; Z91.012 Allergy to eggs; Z79.899 Other long term (current) drug therapy; Z86.718 Personal history of other venous thrombosis and embolism; E66.9 Obesity, unspecified; F32.A Depression, unspecified; F41.9 Anxiety disorder, unspecified; Z87.891 Personal history of nicotine dependence; R07.9 Chest pain, unspecified; Y92.009 Unspecified place in unspecified non-institutional (private) residence as the place of occurrence of the external cause

== ENCOUNTER → 2024-01-05 | Outpatient (CLI) | payer OTHER, MEDICARE ==
[~2024-01-05] MED LIST changes: +ADV250INH INH; +CARD120C3 PO; +CYCL-707 PO; +OXYC1TAB23 PO; +RA S8.6T3 PO; +SERT50TA29 PO; +TRAM50TA2 PO
== END ==
LOC: M PLAIMG 15:32
PROVIDERS: ATTEND Nurse Practitioner
DX: M54.2 Cervicalgia (principal); M48.02 Spinal stenosis, cervical region; Z98.1 Arthrodesis status

== ENCOUNTER 2024-08-02 13:10 | Inpatient (IN) | payer OTHER, MEDICARE ==
[~2024-08-02] VITALS: Ht 180.3 cm; Wt 105.9 kg
[~2024-08-02 13:10] MED LIST changes: -ADV250INH INH; +ADVA1AER9 INH; -CYCL5TAB PO; +CYCL5TAB4 PO; +GABA-1172 PO; -GABA-282 PO; -LIDO1CRE2 TOP; +LIDO4CRE12 TOP; -RA S8.6T3 PO; +SENN18TA PO
[2024-08-02] MEDS: MORPHINE 4 MG/ML 1ML VIAL IV ONE (19:01)
[2024-08-02] MEDS: HYDROMORPHONE HCL 0.5 MG/ 0.5 ML SYRINGE IV ONE (20:23)
[2024-08-02 21:18] LABS: BASO % 0.4 % (0.0-1.0); EOS # 0.1 10^3/uL (0.0-0.5); EOS % 0.8 % (0.0-3.0); HEMATOCRIT 47.4 % (42.0-52.0); HEMOGLOBIN 15.6 g/dl (13.5-17.5); LYMPH # 0.7 10^3/uL (1.5-5.0); LYMPH % 9.1 % (24.0-44.0); MEAN CORPUSCULAR HEMOGLOBIN 30.4 pg (27.0-33.0); MEAN CORPUSCULAR HGB CONC 32.9 g/dl (32.0-36.5); MEAN CORPUSCULAR VOLUME 92.2 fl (80.0-96.0); MONO # 0.4 10^3/uL (0.0-0.8); MONO % 4.5 % (2.0-8.0); NEUTROPHILS # 6.8 10^3/uL (1.5-8.5); NEUTROPHILS % 84.9 % (36.0-66.0); PLATELET COUNT, AUTOMATED 143 10^3/uL (150-450); RED BLOOD COUNT 5.14 10^6/uL (4.30-6.10)
[2024-08-02 21:22] LABS: ERYTHROCYTE SEDIMENTATION RATE 22 mm/hr (0-20)
[2024-08-02 21:51] LABS: C REACTIVE PROTEIN QUANTITATIV 1.3 MG/DL (<1.0); CALCIUM LEVEL 8.3 MG/DL (8.3-10.6); CREATININE FOR GFR 1.03 MG/DL (0.70-1.30); GLOMERULAR FILTRATION RATE 74.8 (>42); POTASSIUM SERUM 4.8 MMOL/L (3.5-5.1)
[2024-08-02] MEDS ORDERED: QUET1TAB17 PO (22:03)
[2024-08-02] MEDS ORDERED: WARF-58 PO (22:03)
[2024-08-02] MEDS ORDERED: SENN-187 PO (22:03)
[2024-08-02] MEDS ORDERED: DILT90CA PO (22:03)
[2024-08-02] MEDS ORDERED: HOME MED LIST COMPLETE! XX SCH (22:05)
[2024-08-03] MEDS: MORPHINE 2 MG/ML 1ML VIAL IV PRN (00:51)
[2024-08-03 03:40] VITALS: BP 146/65; TEMP 98.6; O2SAT 96
[2024-08-03] MEDS: ACETAMINOPHEN 325 MG TAB PO PRN (04:10)
[2024-08-03] MEDS: MORPHINE 2 MG/ML 1ML VIAL IV ONE (06:41)
[2024-08-03 08:18] LABS: HEMATOCRIT 49.2 % (42.0-52.0); HEMOGLOBIN 15.9 g/dl (13.5-17.5); MEAN CORPUSCULAR HEMOGLOBIN 29.6 pg (27.0-33.0); MEAN CORPUSCULAR HGB CONC 32.3 g/dl (32.0-36.5); MEAN CORPUSCULAR VOLUME 91.6 fl (80.0-96.0); PLATELET COUNT, AUTOMATED 162 10^3/uL (150-450); RED BLOOD COUNT 5.37 10^6/uL (4.30-6.10); WHITE BLOOD COUNT 8.8 10^3/uL (4.0-10.0)
[2024-08-03 08:41] LABS: ALBUMIN 3.5 G/DL (3.2-5.2); BILIRUBIN,TOTAL 1.2 MG/DL (0.3-1.2); CALCIUM LEVEL 8.6 MG/DL (8.3-10.6); CREATININE FOR GFR 0.98 MG/DL (0.70-1.30); GLOMERULAR FILTRATION RATE 79.4 (>42); TOTAL PROTEIN 6.3 G/DL (5.7-8.2)
[2024-08-03] MEDS: DOCUSATE SODIUM 100MG CAPSULE PO SCH (10:03)
[2024-08-03] MEDS ORDERED: ALBUTEROL 90 MCG/ACT 8GM HFA INHALER INH PRN (11:55)
[2024-08-03] MEDS ORDERED: diazePAM 5MG TABLET PO PRN (11:55)
[2024-08-03] MEDS ORDERED: GABAPENTIN 100 MG CAP PO PRN (11:55)
[2024-08-03 12:00] VITALS: BP 112/73; TEMP 98.4; O2SAT 94
[2024-08-03 13:16] LABS: INR 4.63; PROTHROMBIN TIME 43.1 SECONDS (12.5-14.5)
[2024-08-03] MEDS ORDERED: METHOCARBAMOL 1,000 MG/10 ML VIAL IV PRN (16:35)
[2024-08-03] MEDS ORDERED: oxyCODONE 10 MG CR TAB PO PRN (16:40)
[2024-08-03] MEDS: WARFARIN SOD 3MG TAB PO SCH (17:13)
[2024-08-03] MEDS: GABAPENTIN 100 MG CAP PO SCH (19:49)
[2024-08-03] MEDS: RAMELTEON 8 MG TAB (ROZEREM) PO PRN (19:50)
[2024-08-03] MEDS: methocarbamoL 750 MG TAB PO PRN (19:50)
[2024-08-03] MEDS: QUEtiapine FUMARATE 25 MG TAB PO SCH (19:50)
[2024-08-03 19:51] VITALS: BP 115/59; TEMP 98.6; O2SAT 95
[2024-08-03] MEDS: ADVAIR HFA 115/21MCG INHALER INH SCH (20:02)
[2024-08-03] MEDS ORDERED: NALOXONE INJ 0.4MG/1ML VIAL IV PRN (21:20)
[2024-08-03] MEDS: NORCO, ANEXSIA 5/325MG TABLET (HYDROcodone/ACETAMINOPHEN) PO PRN (21:41)
[2024-08-04 03:26] VITALS: BP 118/60; TEMP 98.1; O2SAT 93
[2024-08-04 06:47] LABS: INR 4.05; PROTHROMBIN TIME 38.9 SECONDS (12.5-14.5)
[2024-08-04] MEDS: SENNA 8.6 MG TAB (SENOKOT) PO SCH (09:32)
[2024-08-04] MEDS: CETIRIZINE (ZyrTEC) 10 MG TAB PO SCH (09:32)
[2024-08-04] MEDS: SERTRALINE HCL 50 MG TAB PO SCH (09:32)
[2024-08-04 12:00] VITALS: BP 121/63; TEMP 97.9; O2SAT 90
[2024-08-04 20:12] VITALS: BP 111/44; TEMP 98.2; O2SAT 96
[2024-08-04] MEDS: ACETAMINOPHEN 325 MG TAB PO PRN (21:04)
[2024-08-05 03:49] VITALS: BP 118/60; TEMP 97.7; O2SAT 93
[2024-08-05 06:56] LABS: INR 3.89; PROTHROMBIN TIME 37.8 SECONDS (12.5-14.5)
[2024-08-05] MEDS: NORCO, ANEXSIA 5/325MG TABLET (HYDROcodone/ACETAMINOPHEN) PO PRN (08:03)
[2024-08-05 12:00] VITALS: BP 107/49; TEMP 97.9; O2SAT 94
[2024-08-05] MEDS: KETOROLAC 30 MG/ML 1ML VIAL IV PRN (17:33)
[2024-08-05 20:08] VITALS: BP 134/69; TEMP 98.8
[2024-08-06 03:49] VITALS: BP 137/63; TEMP 97.9; O2SAT 94
[2024-08-06 07:16] LABS: INR 3.73; PROTHROMBIN TIME 36.6 SECONDS (12.5-14.5)
[2024-08-06 07:22] LABS: CALCIUM LEVEL 8.5 MG/DL (8.3-10.6); CREATININE FOR GFR 1.11 MG/DL (0.70-1.30); GLOMERULAR FILTRATION RATE 68.4 (>42); POTASSIUM SERUM 4.1 MMOL/L (3.5-5.1)
[2024-08-06 12:00] VITALS: BP 136/62; TEMP 97.9; O2SAT 100
[2024-08-06 20:37] VITALS: BP 129/68; TEMP 97.7; O2SAT 94
[2024-08-06] MEDS: KETOROLAC 30 MG/ML 1ML VIAL IV PRN (23:41)
[2024-08-07 03:50] VITALS: BP 123/63; TEMP 98.1; O2SAT 95
[2024-08-07 05:23] LABS: INR 3.17; PROTHROMBIN TIME 32.3 SECONDS (12.5-14.5)
[2024-08-07] MEDS: ACETAMINOPHEN 325 MG TAB PO SCH (06:00)
[2024-08-07 12:00] VITALS: BP 141/62; TEMP 97.3; O2SAT 97
[2024-08-07] MEDS: MOM 30ML SUSPENSION UDC PO PRN (12:47)
[2024-08-07] MEDS: KETOROLAC TROMETHAMINE 10 MG TAB PO SCH (19:03)
[2024-08-07 20:44] VITALS: BP 124/50; TEMP 97.7; O2SAT 93
[2024-08-08 03:38] VITALS: BP 109/51; TEMP 97.7; O2SAT 93
[2024-08-08 05:38] LABS: INR 2.71; PROTHROMBIN TIME 28.8 SECONDS (12.5-14.5)
[2024-08-08] MEDS: traMADol 50 MG TAB PO PRN (14:53)
[2024-08-08 20:30] VITALS: BP 134/61; TEMP 98.1; O2SAT 92
[2024-08-09 03:27] VITALS: BP 121/56; TEMP 97.9; O2SAT 95
[2024-08-09 05:25] LABS: INR 2.15; PROTHROMBIN TIME 24.1 SECONDS (12.5-14.5)
[2024-08-10 03:28] VITALS: BP 121/56; TEMP 97.7; O2SAT 94
[2024-08-10 06:23] LABS: INR 1.57
[2024-08-10] MEDS: WARFARIN SOD 5MG TAB PO SCH (17:02)
[2024-08-11 04:16] VITALS: BP 133/64; TEMP 98.1; O2SAT 90
[2024-08-11 05:34] LABS: INR 1.49; PROTHROMBIN TIME 18.3 SECONDS (12.5-14.5)
[2024-08-11] MEDS ORDERED: WARF-23 PO (09:18)
== END 2024-08-11 18:18 | disposition home health service (06) | DRG 342 ==
LOC: EDBD 13:10 → M ED 13:10 → M ED INP 23:31 → M MSPAV 08-03 03:40
PROVIDERS: ADMIT Family Medicine; ATTEND Student in an Organized Health Care Education/Training Program
DX: S62.112A Displaced fracture of triquetrum [cuneiform] bone, left wrist, initial encounter for closed fracture (principal); I48.20 Chronic atrial fibrillation, unspecified; J45.909 Unspecified asthma, uncomplicated; M19.90 Unspecified osteoarthritis, unspecified site; M25.462 Effusion, left knee; M48.00 Spinal stenosis, site unspecified; Z79.01 Long term (current) use of anticoagulants; F43.10 Post-traumatic stress disorder, unspecified; F41.9 Anxiety disorder, unspecified; Z86.718 Personal history of other venous thrombosis and embolism; Z96.653 Presence of artificial knee joint, bilateral; Z98.42 Cataract extraction status, left eye; Z88.0 Allergy status to penicillin; Z91.040 Latex allergy status; Z88.5 Allergy status to narcotic agent; Z91.012 Allergy to eggs; Z88.8 Allergy status to other drugs, medicaments and biological substances; W18.30XA Fall on same level, unspecified, initial encounter; Y92.009 Unspecified place in unspecified non-institutional (private) residence as the place of occurrence of the external cause; Z79.899 Other long term (current) drug therapy

== ENCOUNTER 2024-11-24 14:19 | Inpatient (IN) | payer OTHER, MEDICARE ==
[~2024-11-24] VITALS: Ht 182.9 cm; Wt 118.8 kg
[~2024-11-24 14:19] MED LIST changes: +DILT90CA PO; +QUET1TAB17 PO; +SENN-187 PO; +SENN-225 PO; -SENO8.6T5 PO; +WARF-23 PO
[2024-11-24] MEDS: GABAPENTIN 100 MG CAP PO ONE (18:16)
[2024-11-24] MEDS: traMADol 50 MG TAB PO ONE (18:17)
[2024-11-24 21:27] LABS: PLATELET COUNT, AUTOMATED 143 10^3/uL (150-450)
[2024-11-24 21:52] LABS: CALCIUM LEVEL 9.0 MG/DL (8.3-10.6); CARBON DIOXIDE LEVEL 32.0 MMOL/L (20-31); CHLORIDE LEVEL 105.0 MMOL/L (98-107); CREATININE FOR GFR 1.08 MG/DL (0.70-1.30); GLOMERULAR FILTRATION RATE 70.7 (>42); POTASSIUM SERUM 4.6 MMOL/L (3.5-5.1); SODIUM LEVEL 144.0 MMOL/L (136-145)
[2024-11-24] MEDS: ACETAMINOPHEN 500 MG TAB PO ONE (22:43)
[2024-11-25] MEDS ORDERED: ELIQ5TAB PO (00:20)
[2024-11-25] MEDS ORDERED: HOME MED LIST COMPLETE! XX SCH (00:25)
[2024-11-25] MEDS: MORPHINE 2 MG/ML 1 ML VIAL IV PRN ×2 (01:24→13:36)
[2024-11-25] MEDS: LIDOCAINE 5% PATCH TD SCH (01:26)
[2024-11-25] MEDS ORDERED: ALBUTEROL SULFATE 2.5 MG/0.5 ML INH CONCENTRATE NEB SOLN NEB PRN (02:35)
[2024-11-25 06:04] LABS: PLATELET COUNT, AUTOMATED 137 10^3/uL (150-450)
[2024-11-25 06:24] LABS: ALT/SGPT < 9 U/L (7.0-40); AST/SGOT 13 U/L (<34); CALCIUM LEVEL 8.4 MG/DL (8.3-10.6); CARBON DIOXIDE LEVEL 28 MMOL/L (20-31); CHLORIDE LEVEL 106 MMOL/L (98-107); CREATININE FOR GFR 0.99 MG/DL (0.70-1.30); GLOMERULAR FILTRATION RATE 78.5 (>42); POTASSIUM SERUM 4.0 MMOL/L (3.5-5.1); SODIUM LEVEL 143 MMOL/L (136-145)
[2024-11-25] MEDS: APIXABAN 5 MG TAB PO SCH (08:05)
[2024-11-25] MEDS: dilTIAZem 120 MG **CD** CAPSULE PO SCH (08:06)
[2024-11-25] MEDS: ADVAIR HFA 230/21 MCG INHALER INH SCH (08:25)
[2024-11-25] MEDS ORDERED: MORPHINE 2 MG/ML 1 ML VIAL IV PRN (09:15)
[2024-11-25 13:56] VITALS: BP 122/68; TEMP 97.9; O2SAT 94
[2024-11-25 14:45] LABS: C REACTIVE PROTEIN QUANTITATIV 0.56 MG/DL (<1.0)
[2024-11-25] MEDS: ACETAMINOPHEN 325 MG TAB PO PRN (18:34)
[2024-11-25 19:45] VITALS: BP 104/58; TEMP 97.9; O2SAT 93
[2024-11-25] MEDS: CETIRIZINE 10 MG TAB PO SCH (20:36)
[2024-11-25] MEDS: CYCLOBENZAPRINE 10 MG TABLET PO PRN (22:11)
[2024-11-26 04:22] VITALS: BP 107/60; TEMP 97.5; O2SAT 95
[2024-11-26 12:00] VITALS: BP 133/61; TEMP 97.7; O2SAT 95
[2024-11-26 20:12] VITALS: BP 145/63; TEMP 97.9; O2SAT 100
[2024-11-26] MEDS ORDERED: BISACODYL 10 MG SUPP PR PRN (23:20)
[2024-11-26] MEDS: ONDANSETRON 4MG ORAL DISINTEGRATING TAB PO PRN (23:32)
[2024-11-27 03:28] VITALS: BP 134/89; TEMP 97.9; O2SAT 94
[2024-11-27] MEDS: BISACODYL 10 MG SUPP PR PRN ×2 (04:01→18:02)
[2024-11-27] MEDS: DOCUSATE SODIUM 100 MG CAPSULE PO SCH (09:00)
[2024-11-27] MEDS: FLEET ENEMA PR PRN (09:58)
[2024-11-27 10:08] LABS: BASO # 0.0 10^3/uL (0.0-0.2); BASO % 0.5 % (0.0-1.0); EOS # 0.1 10^3/uL (0.0-0.5); EOS % 0.9 % (0.0-3.0); LYMPH # 0.9 10^3/uL (1.5-5.0); LYMPH % 10.3 % (24.0-44.0); MONO # 0.4 10^3/uL (0.0-0.8); MONO % 4.7 % (2.0-8.0); NEUTROPHILS # 7.2 10^3/uL (1.5-8.5); NEUTROPHILS % 83.5 % (36.0-66.0); PLATELET COUNT, AUTOMATED 169 10^3/uL (150-450)
[2024-11-27 10:32] LABS: ALT/SGPT < 9 U/L (7.0-40); AST/SGOT 14 U/L (<34); CALCIUM LEVEL 8.2 MG/DL (8.3-10.6); CARBON DIOXIDE LEVEL 30 MMOL/L (20-31); CHLORIDE LEVEL 100 MMOL/L (98-107); CREATININE FOR GFR 1.07 MG/DL (0.70-1.30); GLOMERULAR FILTRATION RATE 71.5 (>42); MAGNESIUM LEVEL 1.8 MG/DL (1.8-2.4); POTASSIUM SERUM 4.2 MMOL/L (3.5-5.1); SODIUM LEVEL 140 MMOL/L (136-145)
[2024-11-27 12:00] VITALS: BP 125/71; TEMP 97.7; O2SAT 95
[2024-11-27] MEDS: MOM 30 ML SUSPENSION UDC PO PRN (17:56)
[2024-11-27 19:47] VITALS: BP 119/68; TEMP 97.7; O2SAT 94
[2024-11-28 04:02] VITALS: BP 138/72; TEMP 97.5; O2SAT 92
[2024-11-28 06:37] LABS: BASO # 0.0 10^3/uL (0.0-0.2); BASO % 0.4 % (0.0-1.0); EOS # 0.2 10^3/uL (0.0-0.5); EOS % 2.9 % (0.0-3.0); LYMPH # 0.8 10^3/uL (1.5-5.0); LYMPH % 14.8 % (24.0-44.0); MONO # 0.3 10^3/uL (0.0-0.8); MONO % 6.0 % (2.0-8.0); NEUTROPHILS # 4.2 10^3/uL (1.5-8.5); NEUTROPHILS % 75.7 % (36.0-66.0); PLATELET COUNT, AUTOMATED 131 10^3/uL (150-450)
[2024-11-28 07:31] LABS: CALCIUM LEVEL 7.9 MG/DL (8.3-10.6); CARBON DIOXIDE LEVEL 27.0 MMOL/L (20-31); CHLORIDE LEVEL 102.0 MMOL/L (98-107); CREATININE FOR GFR 1.09 MG/DL (0.70-1.30); GLOMERULAR FILTRATION RATE 69.9 (>42); POTASSIUM SERUM 4.5 MMOL/L (3.5-5.1); SODIUM LEVEL 142.0 MMOL/L (136-145)
[2024-11-28 11:50] VITALS: BP 137/65; TEMP 97.9; O2SAT 96
[2024-11-28] MEDS: ADVAIR HFA 115/21 MCG INHALER INH SCH (19:57)
[2024-11-28 20:00] VITALS: BP 116/60; TEMP 97.9; O2SAT 96
[2024-11-28] MEDS: APIXABAN 5 MG TAB PO SCH (21:59)
[2024-11-28] MEDS: CYCLOBENZAPRINE 10 MG TABLET PO PRN (22:00)
[2024-11-28] MEDS: CETIRIZINE 10 MG TAB PO SCH (22:00)
[2024-11-29 04:07] VITALS: BP 117/55; TEMP 97.5; O2SAT 93
[2024-11-29 06:28] LABS: BASO # 0.0 10^3/uL (0.0-0.2); BASO % 0.3 % (0.0-1.0); EOS # 0.2 10^3/uL (0.0-0.5); EOS % 2.9 % (0.0-3.0); LYMPH # 1.0 10^3/uL (1.5-5.0); LYMPH % 14.7 % (24.0-44.0); MONO # 0.3 10^3/uL (0.0-0.8); MONO % 4.8 % (2.0-8.0); NEUTROPHILS # 5.2 10^3/uL (1.5-8.5); NEUTROPHILS % 76.9 % (36.0-66.0); PLATELET COUNT, AUTOMATED 143 10^3/uL (150-450)
[2024-11-29 06:56] LABS: CALCIUM LEVEL 8.5 MG/DL (8.3-10.6); CARBON DIOXIDE LEVEL 30.0 MMOL/L (20-31); CHLORIDE LEVEL 100.0 MMOL/L (98-107); CREATININE FOR GFR 0.99 MG/DL (0.70-1.30); GLOMERULAR FILTRATION RATE 78.5 (>42); POTASSIUM SERUM 4.8 MMOL/L (3.5-5.1); SODIUM LEVEL 138.0 MMOL/L (136-145)
[2024-11-29] MEDS: dilTIAZem 120 MG **CD** CAPSULE PO SCH (10:28)
[2024-11-29 11:25] VITALS: BP_SYST 117; BP_DIAS 55; BP_DIAS 57; TEMP 97.5; O2SAT 94
[2024-11-29] MEDS: dilTIAZem 30 MG TAB PO SCH (14:00)
[2024-11-29 19:59] VITALS: BP 125/57; TEMP 97.7; O2SAT 94
[2024-11-30 03:49] VITALS: BP 138/64; TEMP 97.3; O2SAT 95
[2024-11-30 12:06] VITALS: BP 128/51; TEMP 97.9; O2SAT 95
[2024-11-30 19:57] VITALS: BP 140/64; TEMP 97.9; O2SAT 94
[2024-12-01 04:06] VITALS: BP 144/75; TEMP 97.7; O2SAT 95
[2024-12-01 22:05] LABS: BASO # 0.0 10^3/uL (0.0-0.2); BASO % 0.4 % (0.0-1.0); EOS # 0.2 10^3/uL (0.0-0.5); EOS % 1.5 % (0.0-3.0); LYMPH # 1.0 10^3/uL (1.5-5.0); LYMPH % 9.4 % (24.0-44.0); MONO # 0.6 10^3/uL (0.0-0.8); MONO % 5.2 % (2.0-8.0); NEUTROPHILS # 9.2 10^3/uL (1.5-8.5); NEUTROPHILS % 83.2 % (36.0-66.0); PLATELET COUNT, AUTOMATED 211 10^3/uL (150-450)
[2024-12-01 22:34] LABS: ALT/SGPT 10.0 U/L (7.0-40); AST/SGOT 20.0 U/L (<34); CALCIUM LEVEL 9.3 MG/DL (8.3-10.6); CARBON DIOXIDE LEVEL 25.0 MMOL/L (20-31); CHLORIDE LEVEL 99.0 MMOL/L (98-107); CREATININE FOR GFR 1.21 MG/DL (0.70-1.30); GLOMERULAR FILTRATION RATE 61.7 (>42); POTASSIUM SERUM 4.6 MMOL/L (3.5-5.1); SODIUM LEVEL 138.0 MMOL/L (136-145)
[2024-12-01 23:25] VITALS: BP 140/90; TEMP 97.9; O2SAT 90
[2024-12-02] VITALS (8 sets, daily range): BP systolic 103–153; BP diastolic 58–69; TEMP 97.3–98.9; O2SAT 91–97
[2024-12-02] MEDS: LR 1,000 ML IV SCH (01:29)
[2024-12-02] MEDS: PIPERACILLIN/TAZOBACTAM SOD 4.5 GM in DEXTROSE 5% (D5W) ADV/MINI-BAG 50 ML IV SCH (01:39)
[2024-12-02 06:05] LABS: BASO # 0.0 10^3/uL (0.0-0.2); BASO % 0.4 % (0.0-1.0); EOS # 0.2 10^3/uL (0.0-0.5); EOS % 1.8 % (0.0-3.0); LYMPH # 0.7 10^3/uL (1.5-5.0); LYMPH % 7.1 % (24.0-44.0); MONO # 0.5 10^3/uL (0.0-0.8); MONO % 4.9 % (2.0-8.0); NEUTROPHILS # 8.4 10^3/uL (1.5-8.5); NEUTROPHILS % 85.6 % (36.0-66.0); PLATELET COUNT, AUTOMATED 187 10^3/uL (150-450)
[2024-12-02 06:16] LABS: INR 1.18
[2024-12-02] MEDS ORDERED: ONDANSETRON 4MG 2ML VIAL IV PRN (10:35)
[2024-12-02] MEDS ORDERED: CEPACOL LOZENGE PO PRN (18:50)
[2024-12-03] VITALS (9 sets, daily range): BP systolic 119–166; BP diastolic 57–79; TEMP 97.1–99.1; O2SAT 94–98
[2024-12-03 05:57] LABS: BASO # 0.0 10^3/uL (0.0-0.2); BASO % 0.3 % (0.0-1.0); EOS # 0.3 10^3/uL (0.0-0.5); EOS % 4.7 % (0.0-3.0); LYMPH # 1.2 10^3/uL (1.5-5.0); LYMPH % 20.7 % (24.0-44.0); MONO # 0.4 10^3/uL (0.0-0.8); MONO % 6.0 % (2.0-8.0); NEUTROPHILS # 3.9 10^3/uL (1.5-8.5); NEUTROPHILS % 68.0 % (36.0-66.0); PLATELET COUNT, AUTOMATED 163 10^3/uL (150-450)
[2024-12-03 07:42] LABS: CALCIUM LEVEL 8.1 MG/DL (8.3-10.6); CARBON DIOXIDE LEVEL 30.0 MMOL/L (20-31); CHLORIDE LEVEL 101.0 MMOL/L (98-107); CREATININE FOR GFR 1.26 MG/DL (0.70-1.30); GLOMERULAR FILTRATION RATE 58.7 (>42); MAGNESIUM LEVEL 2.0 MG/DL (1.8-2.4); POTASSIUM SERUM 4.3 MMOL/L (3.5-5.1); SODIUM LEVEL 139.0 MMOL/L (136-145)
[2024-12-03 14:34] LABS: C REACTIVE PROTEIN QUANTITATIV 2.41 MG/DL (<1.0)
[2024-12-03] MEDS: dilTIAZem 30 MG TAB PO ONE (18:46)
[2024-12-03 21:31] LABS: CK-MB VALUE MASS 2.9 NG/ML (<3.6)
[2024-12-03 21:33] LABS: CPK CREATINE PHOSPHOKINASE 89.0 U/L (46-171); MB/CK RELATIVE INDEX 3.25 (< OR =4)
[2024-12-04 03:29] VITALS: BP_SYST 92; BP_DIAS 42; BP_DIAS 48; TEMP 97.6; O2SAT 94
[2024-12-04] MEDS: NS 500 ML IV ONE (04:33)
[2024-12-04] MEDS ORDERED: SODIUM CHLORIDE 0.9% 1000 ML IV ONE (05:00)
[2024-12-04 05:15] VITALS: BP 114/58
[2024-12-04 06:50] LABS: C REACTIVE PROTEIN QUANTITATIV 2.46 MG/DL (<1.0); CALCIUM LEVEL 8.1 MG/DL (8.3-10.6); CARBON DIOXIDE LEVEL 27.0 MMOL/L (20-31); CHLORIDE LEVEL 103.0 MMOL/L (98-107); CREATININE FOR GFR 1.16 MG/DL (0.70-1.30); GLOMERULAR FILTRATION RATE 64.9 (>42); MAGNESIUM LEVEL 1.9 MG/DL (1.8-2.4); POTASSIUM SERUM 4.5 MMOL/L (3.5-5.1); SODIUM LEVEL 138.0 MMOL/L (136-145)
[2024-12-04 07:30] VITALS: BP 111/54; TEMP 97.6; O2SAT 93
[2024-12-04 09:29] LABS: BASO # 0.0 10^3/uL (0.0-0.2); BASO % 0.5 % (0.0-1.0); EOS # 0.3 10^3/uL (0.0-0.5); EOS % 4.7 % (0.0-3.0); LYMPH # 0.9 10^3/uL (1.5-5.0); LYMPH % 15.7 % (24.0-44.0); MONO # 0.3 10^3/uL (0.0-0.8); MONO % 5.2 % (2.0-8.0); NEUTROPHILS # 4.4 10^3/uL (1.5-8.5); NEUTROPHILS % 73.7 % (36.0-66.0); PLATELET COUNT, AUTOMATED 143 10^3/uL (150-450)
[2024-12-04 11:33] VITALS: BP 114/55; TEMP 98.3; O2SAT 93
[2024-12-04] MEDS: APIXABAN 5 MG TAB PO SCH (11:47)
[2024-12-04] MEDS: BISACODYL 10 MG SUPP PR ONE (13:29)
[2024-12-04 16:02] VITALS: BP 142/89; TEMP 98.8; O2SAT 56; O2SAT 96
[2024-12-04 20:10] VITALS: BP 146/72; TEMP 98.5; O2SAT 95
[2024-12-04] MEDS: SENNA 8.6 MG TAB PO SCH (20:18)
[2024-12-05] MEDS: MORPHINE 2 MG/ML 1 ML VIAL IV PRN (00:05)
[2024-12-05 00:44] VITALS: BP 116/56; TEMP 97.7; O2SAT 93
[2024-12-05 04:08] VITALS: BP 113/56; TEMP 97.9; O2SAT 94
[2024-12-05 05:53] LABS: BASO # 0.0 10^3/uL (0.0-0.2); BASO % 0.6 % (0.0-1.0); EOS # 0.3 10^3/uL (0.0-0.5); EOS % 5.9 % (0.0-3.0); LYMPH # 1.1 10^3/uL (1.5-5.0); LYMPH % 22.6 % (24.0-44.0); MONO # 0.4 10^3/uL (0.0-0.8); MONO % 7.5 % (2.0-8.0); NEUTROPHILS # 3.0 10^3/uL (1.5-8.5); NEUTROPHILS % 63.2 % (36.0-66.0); PLATELET COUNT, AUTOMATED 142 10^3/uL (150-450)
[2024-12-05 06:28] LABS: C REACTIVE PROTEIN QUANTITATIV 2.52 MG/DL (<1.0); CALCIUM LEVEL 8.5 MG/DL (8.3-10.6); CARBON DIOXIDE LEVEL 29.0 MMOL/L (20-31); CHLORIDE LEVEL 103.0 MMOL/L (98-107); CREATININE FOR GFR 1.19 MG/DL (0.70-1.30); GLOMERULAR FILTRATION RATE 62.9 (>42); MAGNESIUM LEVEL 1.8 MG/DL (1.8-2.4); POTASSIUM SERUM 4.2 MMOL/L (3.5-5.1); SODIUM LEVEL 140.0 MMOL/L (136-145)
[2024-12-05 07:21] VITALS: BP 124/60; TEMP 97.6; O2SAT 93
[2024-12-05] MEDS ORDERED: PERC10TA26 PO (11:02)
[2024-12-05] MEDS ORDERED: CEFD300C PO (11:03)
[2024-12-05] MEDS ORDERED: METR-265 PO (11:03)
[2024-12-05] MEDS ORDERED: OXYC1TAB23 PO (11:22)
[2024-12-05] MEDS: CEFDINIR 300 MG CAP PO SCH (17:47)
[2024-12-05 20:00] VITALS: BP 141/65; TEMP 98.9; O2SAT 94
[2024-12-06 04:16] VITALS: BP 145/65; TEMP 97.6; O2SAT 95
[2024-12-06 06:00] LABS: BASO # 0.0 10^3/uL (0.0-0.2); BASO % 0.5 % (0.0-1.0); EOS # 0.2 10^3/uL (0.0-0.5); EOS % 3.2 % (0.0-3.0); LYMPH # 1.3 10^3/uL (1.5-5.0); LYMPH % 17.5 % (24.0-44.0); MONO # 0.4 10^3/uL (0.0-0.8); MONO % 5.7 % (2.0-8.0); NEUTROPHILS # 5.5 10^3/uL (1.5-8.5); NEUTROPHILS % 73.0 % (36.0-66.0); PLATELET COUNT, AUTOMATED 161 10^3/uL (150-450)
[2024-12-06 06:07] VITALS: BP 110/56
[2024-12-06 06:09] VITALS: BP 110/56
[2024-12-06 06:17] LABS: C REACTIVE PROTEIN QUANTITATIV 2.66 MG/DL (<1.0); CALCIUM LEVEL 8.8 MG/DL (8.3-10.6); CARBON DIOXIDE LEVEL 29.0 MMOL/L (20-31); CHLORIDE LEVEL 103.0 MMOL/L (98-107); CREATININE FOR GFR 1.16 MG/DL (0.70-1.30); GLOMERULAR FILTRATION RATE 64.9 (>42); MAGNESIUM LEVEL 1.7 MG/DL (1.8-2.4); POTASSIUM SERUM 4.0 MMOL/L (3.5-5.1); SODIUM LEVEL 140.0 MMOL/L (136-145)
[2024-12-06] MEDS: POTASSIUM CHLORIDE 10MEQ SR TABLET PO ONE (07:00)
[2024-12-06] MEDS: MAGNESIUM OXIDE 400 MG TAB PO ONE (07:00)
[2024-12-06 07:41] VITALS: BP 119/62; TEMP 98; O2SAT 95
[2024-12-06 14:48] VITALS: BP 124/63; TEMP 98.7; O2SAT 94
[2024-12-06 16:22] VITALS: BP 121/62; TEMP 98.6; O2SAT 95
== END 2024-12-06 17:37 | disposition home or self-care (01) | DRG 351 ==
LOC: M ED 14:19 → M ED INP 23:24 → OBSVTOIN 11-25 09:12 → M MSPAV 11-25 14:23 → M ED INP 12-01 23:32 → M MSPAV 12-02 00:10 → M PCU 12-02 00:22
PROVIDERS: ADMIT Internal Medicine; ATTEND Internal Medicine
DX: M25.562 Pain in left knee (principal); I48.0 Paroxysmal atrial fibrillation; E66.01 Morbid (severe) obesity due to excess calories; J44.9 Chronic obstructive pulmonary disease, unspecified; Z79.01 Long term (current) use of anticoagulants; Z86.711 Personal history of pulmonary embolism; F39 Unspecified mood [affective] disorder; A09 Infectious gastroenteritis and colitis, unspecified; Z79.899 Other long term (current) drug therapy; F43.10 Post-traumatic stress disorder, unspecified; F41.9 Anxiety disorder, unspecified; Z96.653 Presence of artificial knee joint, bilateral; Z88.0 Allergy status to penicillin; Z88.5 Allergy status to narcotic agent; R26.2 Difficulty in walking, not elsewhere classified; Z91.040 Latex allergy status; Z91.012 Allergy to eggs; R11.2 Nausea with vomiting, unspecified

== ENCOUNTER 2025-03-13 10:57 | Observation (INO) | payer OTHER, MEDICARE ==
[~2025-03-13] VITALS: Ht 182.9 cm; Wt 119.3 kg
[~2025-03-13 10:57] MED LIST changes: +CEFD300C PO; +PERC10TA26 PO
[2025-03-13 12:14] LABS: CALCIUM LEVEL 9.1 MG/DL (8.3-10.6); CARBON DIOXIDE LEVEL 30.0 MMOL/L (20-31); CHLORIDE LEVEL 104.0 MMOL/L (98-107); CREATININE FOR GFR 1.26 MG/DL (0.70-1.30); GLOMERULAR FILTRATION RATE 58.7 (>42); MAGNESIUM LEVEL 2.0 MG/DL (1.8-2.4); POTASSIUM SERUM 4.4 MMOL/L (3.5-5.1); SODIUM LEVEL 140.0 MMOL/L (136-145)
[2025-03-13 12:19] LABS: BASO # 0.1 10^3/uL (0.0-0.2); BASO % 0.8 % (0.0-1.0); EOS # 0.0 10^3/uL (0.0-0.5); EOS % 0.7 % (0.0-3.0); LYMPH # 1.0 10^3/uL (1.5-5.0); LYMPH % 16.7 % (24.0-44.0); MONO # 0.3 10^3/uL (0.0-0.8); MONO % 5.7 % (2.0-8.0); NEUTROPHILS # 4.5 10^3/uL (1.5-8.5); NEUTROPHILS % 75.6 % (36.0-66.0); PLATELET COUNT, AUTOMATED 168 10^3/uL (150-450)
[2025-03-13 12:31] LABS: CPK CREATINE PHOSPHOKINASE 83.0 U/L (46-171)
[2025-03-13 13:00] LABS: INR 1.03
[2025-03-13] MEDS: MORPHINE 2 MG/ML 1 ML VIAL IV PRN (13:02)
[2025-03-13] MEDS: ACETAMINOPHEN *IV* 1,000 MG in IV 1 EA IV ONE (13:42)
[2025-03-13] MEDS ORDERED: QUET50TA4 PO (13:52)
[2025-03-13] MEDS ORDERED: VITA100093 PO (13:52)
[2025-03-13] MEDS ORDERED: SENN-187 PO (13:52)
[2025-03-13] MEDS ORDERED: MED REC IN PROGRESS XX SCH (13:55)
[2025-03-13 14:40] LABS: VENOUS BASE EXCESS 0.9 (-2.0-2.0); VENOUS HCO3 28.1 MMOL/L (23.0-27.0); VENOUS O2 SATURATION 65.5 % (60.0-80.0); VENOUS PARTIAL PRESSURE CO2 54.2 mmHg (38.0-50.0); VENOUS PARTIAL PRESSURE O2 33.5 mmHg (30.0-50.0); VENOUS PH 7.333 UNITS (7.330-7.430); VENOUS STANDARD HCO3 24.3 MMOL/L; VENOUS TOTAL CO2 29.8 MMOL/L (24.0-28.0)
[2025-03-13] MEDS ORDERED: HOME MED LIST COMPLETE! XX SCH (15:40)
[2025-03-13 16:40] LABS: KETONE, URINE AUTO RFX NEGATIVE (NEGATIVE); LEUKOCYTE ESTERASE UR AUTO RFX NEGATIVE (NEGATIVE); NITRITE, URINE AUTO RFX NEGATIVE (NEGATIVE); RBC, URINE AUTO RFX 4 /HPF (0-3); SQUAM EPITHELIAL CELL UR AURFX 0 /HPF (0-6); WBC, URINE AUTO RFX 1 /HPF (0-3)
[2025-03-13 16:55] VITALS: BP 128/73; TEMP 97.7; O2SAT 98
[2025-03-13] MEDS: KETOROLAC 30 MG/ML 1 ML VIAL IV PRN (17:20)
[2025-03-13] MEDS: ADVAIR HFA 115/21 MCG INHALER INH SCH (19:35)
[2025-03-13] MEDS: APIXABAN 5 MG TAB PO SCH (20:10)
[2025-03-13] MEDS: QUEtiapine FUMARATE 50MG TAB PO SCH (20:10)
[2025-03-13] MEDS: GABAPENTIN 100 MG CAP PO SCH (20:10)
[2025-03-13] MEDS: SENNA 8.6 MG TAB PO SCH (20:10)
[2025-03-13] MEDS: traMADol 50 MG TAB PO SCH (20:11)
[2025-03-13] MEDS: ACETAMINOPHEN 500 MG TAB PO SCH (20:11)
[2025-03-13 20:34] VITALS: BP 103/58; TEMP 97.9; O2SAT 94
[2025-03-14 03:57] VITALS: BP 103/67; TEMP 97.7; O2SAT 94
[2025-03-14 07:12] LABS: BASO # 0.0 10^3/uL (0.0-0.2); BASO % 0.7 % (0.0-1.0); EOS # 0.1 10^3/uL (0.0-0.5); EOS % 1.2 % (0.0-3.0); LYMPH # 1.5 10^3/uL (1.5-5.0); LYMPH % 25.4 % (24.0-44.0); MONO # 0.3 10^3/uL (0.0-0.8); MONO % 5.7 % (2.0-8.0); NEUTROPHILS # 4.0 10^3/uL (1.5-8.5); NEUTROPHILS % 66.7 % (36.0-66.0); PLATELET COUNT, AUTOMATED 145 10^3/uL (150-450)
[2025-03-14 07:41] LABS: CALCIUM LEVEL 8.1 MG/DL (8.3-10.6); CARBON DIOXIDE LEVEL 27.0 MMOL/L (20-31); CHLORIDE LEVEL 106.0 MMOL/L (98-107); CREATININE FOR GFR 1.16 MG/DL (0.70-1.30); GLOMERULAR FILTRATION RATE 64.9 (>42); POTASSIUM SERUM 4.2 MMOL/L (3.5-5.1); SODIUM LEVEL 140.0 MMOL/L (136-145)
[2025-03-14] MEDS: CETIRIZINE 10 MG TAB PO SCH (09:23)
[2025-03-14 11:30] VITALS: BP 104/66; TEMP 97.8; O2SAT 96
[2025-03-14] MEDS: LIDOCAINE 5% PATCH TD SCH (11:38)
[2025-03-14 19:58] VITALS: BP 112/63; TEMP 98.6; O2SAT 94
[2025-03-14] MEDS: ACETAMINOPHEN 500 MG TAB PO SCH (20:01)
[2025-03-14] MEDS: BENZONATATE 100 MG CAPSULE PO PRN (20:58)
[2025-03-14] MEDS: dilTIAZem 30 MG TAB PO SCH (22:55)
[2025-03-15 04:06] VITALS: BP 98/61; TEMP 98; O2SAT 94
[2025-03-15 07:20] LABS: BASO # 0.0 10^3/uL (0.0-0.2); BASO % 0.5 % (0.0-1.0); EOS # 0.1 10^3/uL (0.0-0.5); EOS % 1.1 % (0.0-3.0); LYMPH # 1.4 10^3/uL (1.5-5.0); LYMPH % 18.8 % (24.0-44.0); MONO # 0.4 10^3/uL (0.0-0.8); MONO % 5.4 % (2.0-8.0); NEUTROPHILS # 5.6 10^3/uL (1.5-8.5); NEUTROPHILS % 73.9 % (36.0-66.0); PLATELET COUNT, AUTOMATED 141 10^3/uL (150-450)
[2025-03-15 07:43] LABS: CALCIUM LEVEL 8.2 MG/DL (8.3-10.6); CARBON DIOXIDE LEVEL 28.0 MMOL/L (20-31); CHLORIDE LEVEL 102.0 MMOL/L (98-107); CREATININE FOR GFR 1.31 MG/DL (0.70-1.30); GLOMERULAR FILTRATION RATE 56.1 (>42); POTASSIUM SERUM 4.2 MMOL/L (3.5-5.1); SODIUM LEVEL 137.0 MMOL/L (136-145)
[2025-03-15 11:37] VITALS: BP 106/61; TEMP 97.9; O2SAT 97
[2025-03-15 19:49] VITALS: BP 111/58; TEMP 98.7; O2SAT 95
[2025-03-15] MEDS ORDERED: ACETAMINOPHEN 500 MG TAB PO PRN (21:15)
[2025-03-15 22:38] VITALS: BP 98/60
[2025-03-16 05:11] VITALS: BP 120/63; TEMP 98; O2SAT 96
[2025-03-16 06:41] LABS: BASO # 0.0 10^3/uL (0.0-0.2); BASO % 0.4 % (0.0-1.0); EOS # 0.1 10^3/uL (0.0-0.5); EOS % 0.6 % (0.0-3.0); LYMPH # 0.9 10^3/uL (1.5-5.0); LYMPH % 11.2 % (24.0-44.0); MONO # 0.4 10^3/uL (0.0-0.8); MONO % 4.4 % (2.0-8.0); NEUTROPHILS # 7.0 10^3/uL (1.5-8.5); NEUTROPHILS % 83.3 % (36.0-66.0); PLATELET COUNT, AUTOMATED 124 10^3/uL (150-450)
[2025-03-16 07:03] LABS: CALCIUM LEVEL 8.1 MG/DL (8.3-10.6); CARBON DIOXIDE LEVEL 27.0 MMOL/L (20-31); CHLORIDE LEVEL 104.0 MMOL/L (98-107); CREATININE FOR GFR 1.25 MG/DL (0.70-1.30); GLOMERULAR FILTRATION RATE 59.3 (>42); POTASSIUM SERUM 4.8 MMOL/L (3.5-5.1); SODIUM LEVEL 138.0 MMOL/L (136-145)
[2025-03-16 11:41] VITALS: BP 120/70; TEMP 98; O2SAT 96
[2025-03-17 06:44] VITALS: BP 140/63; TEMP 97.6; O2SAT 99
[2025-03-17] MEDS ORDERED: FLEET ENEMA PR PRN (19:00)
[2025-03-17] MEDS: SENNA 8.6 MG TAB PO SCH (20:41)
[2025-03-17] MEDS: BISACODYL 10 MG SUPP PR ONE (20:41)
[2025-03-17] MEDS: DOCUSATE SODIUM 100 MG CAPSULE PO SCH (20:41)
[2025-03-18 06:15] VITALS: BP 125/58; TEMP 97.5; O2SAT 95
[2025-03-18] MEDS: traMADol 50 MG TAB PO SCH (16:54)
[2025-03-18] MEDS: LIDOCAINE 5% PATCH TD SCH (21:04)
[2025-03-19 05:20] VITALS: BP 128/71; TEMP 98.3; O2SAT 97
[2025-03-19] MEDS: LIDOCAINE 1% MDV 20 ML VIAL SC SCH (16:30)
[2025-03-19 17:55] VITALS: BP 145/77; TEMP 98.1; O2SAT 96
[2025-03-19 21:13] VITALS: BP 130/59; TEMP 98.3; O2SAT 96
[2025-03-20 05:12] VITALS: BP 131/74; TEMP 97.9; O2SAT 96
[2025-03-20 07:37] LABS: BASO # 0.0 10^3/uL (0.0-0.2); BASO % 0.8 % (0.0-1.0); EOS # 0.1 10^3/uL (0.0-0.5); EOS % 1.2 % (0.0-3.0); LYMPH # 1.1 10^3/uL (1.5-5.0); LYMPH % 22.1 % (24.0-44.0); MONO # 0.3 10^3/uL (0.0-0.8); MONO % 6.8 % (2.0-8.0); NEUTROPHILS # 3.5 10^3/uL (1.5-8.5); NEUTROPHILS % 68.7 % (36.0-66.0); PLATELET COUNT, AUTOMATED 145 10^3/uL (150-450)
[2025-03-20 08:06] LABS: CALCIUM LEVEL 8.5 MG/DL (8.3-10.6); CARBON DIOXIDE LEVEL 28 MMOL/L (20-31); CHLORIDE LEVEL 104 MMOL/L (98-107); CREATININE FOR GFR 1.22 MG/DL (0.70-1.30); GLOMERULAR FILTRATION RATE 61.1 (>42); POTASSIUM SERUM 4.6 MMOL/L (3.5-5.1); SODIUM LEVEL 138 MMOL/L (136-145)
[2025-03-20 11:36] LABS: C REACTIVE PROTEIN QUANTITATIV < 0.50 MG/DL (<1.0)
[2025-03-20 11:42] LABS: BASO # 0.0 10^3/uL (0.0-0.2); BASO % 0.8 % (0.0-1.0); EOS # 0.1 10^3/uL (0.0-0.5); EOS % 1.3 % (0.0-3.0); LYMPH # 1.1 10^3/uL (1.5-5.0); LYMPH % 21.7 % (24.0-44.0); MONO # 0.3 10^3/uL (0.0-0.8); MONO % 6.5 % (2.0-8.0); NEUTROPHILS # 3.6 10^3/uL (1.5-8.5); NEUTROPHILS % 69.3 % (36.0-66.0); PLATELET COUNT, AUTOMATED 146 10^3/uL (150-450)
[2025-03-20 14:15] VITALS: BP 131/64
[2025-03-20 14:46] LABS: CRYSTALS, BODY FLUID NONE SEEN (NONE SEEN); SOURCE, BODY FLUID CRYSTALS LFT KNEE
[2025-03-20] MEDS ORDERED: METH-1165 PO (16:11)
[2025-03-20] MEDS ORDERED: HYDR-3715 PO (16:11)
[2025-03-20] MEDS ORDERED: TRAM50TA2 PO (16:11)
[2025-03-20] MEDS ORDERED: SENN18TA PO (16:11)
[2025-03-20] MEDS ORDERED: COLA100C5 PO (16:11)
[2025-03-20] MEDS ORDERED: LIDO5TD TD (16:11)
== END 2025-03-20 19:54 | disposition home health service (06) ==
LOC: M ED 10:57 → EDBD 10:57 → M ED INP 10:58 → M MSPAV 16:53
PROVIDERS: ADMIT Internal Medicine Nephrology; ATTEND General Practice
DX: R55 Syncope and collapse (principal); R00.1 Bradycardia, unspecified; R29.6 Repeated falls; I48.91 Unspecified atrial fibrillation; Z79.01 Long term (current) use of anticoagulants; F43.10 Post-traumatic stress disorder, unspecified; F39 Unspecified mood [affective] disorder; E66.9 Obesity, unspecified; Z86.718 Personal history of other venous thrombosis and embolism; M48.061 Spinal stenosis, lumbar region without neurogenic claudication; M99.63 Osseous and subluxation stenosis of intervertebral foramina of lumbar region; Z79.899 Other long term (current) drug therapy; R26.89 Other abnormalities of gait and mobility; G89.29 Other chronic pain; M25.511 Pain in right shoulder; M25.569 Pain in unspecified knee; Z91.041 Radiographic dye allergy status; Z91.040 Latex allergy status; Z88.0 Allergy status to penicillin; Z88.5 Allergy status to narcotic agent; Z91.0120 Allergy to eggs, unspecified; Z91.018 Allergy to other foods; M25.462 Effusion, left knee
CPT/HCPCS: 20611; 36415; 70450; 71045; 72125; 73030; 73564; 73590; 73610; 76882; 80047; 80048; 81001; 82550; 82803; 82945; 83605; 83735; 84145; 84443; 84550; 84560; 85025; 85610; 85652; 85730; 86140; 87070; 87205; 89060; 93005; 93041; 94640; 94664; 94760; 96374; 96375; 96376; 97161; 97165; 97530; 97535; 99285; J0134; J1885

== ENCOUNTER 2025-03-24 18:25 | Inpatient (IN) | payer MEDICARE, OTHER ==
[~2025-03-24] VITALS: Ht 182.9 cm; Wt 135.0 kg
[~2025-03-24 18:25] MED LIST changes: +COLA100C5 PO; +HYDR-3715 PO; +LIDO5TD TD; +METH-1165 PO; +QUET50TA4 PO
[2025-03-24 18:57] LABS: BASO # 0.0 10^3/uL (0.0-0.2); BASO % 0.2 % (0.0-1.0); EOS # 0.0 10^3/uL (0.0-0.5); EOS % 0.1 % (0.0-3.0); LYMPH # 0.9 10^3/uL (1.5-5.0); LYMPH % 5.5 % (24.0-44.0); MONO # 0.8 10^3/uL (0.0-0.8); MONO % 5.4 % (2.0-8.0); NEUTROPHILS # 13.6 10^3/uL (1.5-8.5); NEUTROPHILS % 88.5 % (36.0-66.0); PLATELET COUNT, AUTOMATED 181 10^3/uL (150-450)
[2025-03-24 19:22] LABS: CALCIUM LEVEL 8.5 MG/DL (8.3-10.6); CARBON DIOXIDE LEVEL 27.0 MMOL/L (20-31); CHLORIDE LEVEL 101.0 MMOL/L (98-107); CREATININE FOR GFR 1.28 MG/DL (0.70-1.30); GLOMERULAR FILTRATION RATE 57.6 (>42); POTASSIUM SERUM 3.9 MMOL/L (3.5-5.1); SODIUM LEVEL 137.0 MMOL/L (136-145)
[2025-03-24 19:34] LABS: C REACTIVE PROTEIN QUANTITATIV 20.1 MG/DL (<1.0)
[2025-03-24] MEDS: NS 500 ML IV ONE (20:13)
[2025-03-24] MEDS: ACETAMINOPHEN *IV* 1,000 MG in IV 1 EA IV ONE (20:14)
[2025-03-24] MEDS: QUEtiapine FUMARATE 50MG TAB PO SCH (21:00)
[2025-03-24] MEDS: PERCOCET 5MG/325MG TAB PO ONE (22:07)
[2025-03-24] MEDS ORDERED: CEFEPIME HCL 1 GM in DEXTROSE 5% (D5W) ADV/MINI-BAG 50 ML IV SCH (22:20)
[2025-03-24] MEDS ORDERED: MAALOX 30 ML SUSP *UDC PO PRN (22:20)
[2025-03-24] MEDS ORDERED: MOM 30 ML SUSPENSION UDC PO PRN (22:20)
[2025-03-24] MEDS ORDERED: ACETAMINOPHEN *IV* 1,000 MG in IV 1 EA IV PRN (22:20)
[2025-03-24] MEDS: NS (Normal Saline) 0.9% 1,000 ML IV SCH (22:53)
[2025-03-25] VITALS (18 sets, daily range): BP systolic 85–149; BP diastolic 50–96; TEMP 97.7–99.5; O2SAT 77–100
[2025-03-25] MEDS: CEFEPIME HCL 2 GM in DEXTROSE 5% (D5W) ADV/MINI-BAG 50 ML IV SCH (00:02)
[2025-03-25] MEDS ORDERED: MM S100C PO (00:12)
[2025-03-25] MEDS ORDERED: HOME MED LIST COMPLETE! XX SCH (00:20)
[2025-03-25] MEDS: KETOROLAC 30 MG/ML 1 ML VIAL IV PRN (00:28)
[2025-03-25] MEDS: VANCOMYCIN HCL 2,000 MG, VIAL MATE ADAPTER 1 EACH in NS 500 ML IV ONE (01:00)
[2025-03-25] MEDS ORDERED: ALBUTEROL 90 MCG/ACT 8 GM HFA INHALER INH PRN (04:40)
[2025-03-25] MEDS: HYDROMORPHONE HCL 0.5 MG/0.5 ML SYRINGE IV PRN ×2 (05:27→19:30)
[2025-03-25 06:59] LABS: PLATELET COUNT, AUTOMATED 146 10^3/uL (150-450)
[2025-03-25 07:48] LABS: ALT/SGPT < 9 U/L (7.0-40); AST/SGOT 10 U/L (<34); C REACTIVE PROTEIN QUANTITATIV 16.45 MG/DL (<1.0); CALCIUM LEVEL 7.4 MG/DL (8.3-10.6); CARBON DIOXIDE LEVEL 24 MMOL/L (20-31); CHLORIDE LEVEL 107 MMOL/L (98-107); CREATININE FOR GFR 1.29 MG/DL (0.70-1.30); GLOMERULAR FILTRATION RATE 57.1 (>42); MAGNESIUM LEVEL 1.9 MG/DL (1.8-2.4); POTASSIUM SERUM 4.0 MMOL/L (3.5-5.1); SODIUM LEVEL 138 MMOL/L (136-145)
[2025-03-25] MEDS: dilTIAZem 30 MG TAB PO SCH (09:00)
[2025-03-25] MEDS: VITAMIN D 1,000 INTERNATIONAL UNITS TABLET PO SCH (09:08)
[2025-03-25] MEDS: PANTOPRAZOLE 40MG VIAL IV SCH (09:08)
[2025-03-25] MEDS: GABAPENTIN 100 MG CAP PO SCH (09:09)
[2025-03-25] MEDS: DOCUSATE SODIUM 100 MG CAPSULE PO SCH (09:09)
[2025-03-25] MEDS: VANCOMYCIN HCL 1,000 MG, VIAL MATE ADAPTER 1 EACH in NS 250 ML IV SCH ×2 (09:09→20:09)
[2025-03-25] MEDS: CETIRIZINE 10 MG TAB PO SCH (09:09)
[2025-03-25] MEDS: ADVAIR HFA 115/21 MCG INHALER INH SCH (09:29)
[2025-03-25 09:59] LABS: SOURCE, BODY FLUID LFT KNEE
[2025-03-25 10:03] LABS: SOURCE, BODY FLUID RT KNEE
[2025-03-25 10:31] LABS: CRYSTALS, BODY FLUID NONE SEEN (NONE SEEN); SOURCE, BODY FLUID CRYSTALS LFT KNEE
[2025-03-25 10:38] LABS: CRYSTALS, BODY FLUID NONE SEEN (NONE SEEN); SOURCE, BODY FLUID CRYSTALS RT KNEE
[2025-03-25] MEDS: dilTIAZem 25 MG/5 ML VIAL IV STA (16:11)
[2025-03-25] MEDS ORDERED: MORPHINE 2 MG/ML 1 ML VIAL As Ordered ONE (16:16)
[2025-03-25] MEDS: MORPHINE 2 MG/ML 1 ML VIAL IV ONE (16:26)
[2025-03-25 16:33] LABS: ABG BASE EXCESS -0.5 (-2.0-2.0); ABG HCO3 22.8 MMOL/L (22.0-26.0); ABG O2 SATURATION 99.7 % (95.0-99.0); ABG PARTIAL PRESSURE CO2 33.8 mmHg (35.0-45.0); ABG PARTIAL PRESSURE O2 232.0 mmHg (75.0-100.0); ABG STANDARD HCO3 24.1 MMOL/L. (22.0-26.0); ABG TOTAL CO2 23.8 MMOL/L (23.0-31.0); ABG pH (ARTERIAL) 7.447 UNITS (7.350-7.450)
[2025-03-25] MEDS: NS (Normal Saline) 0.9% 1,000 ML IV SCH (16:59)
[2025-03-25] MEDS: NS 500 ML IV ONE (17:00)
[2025-03-25 17:12] LABS: BASO # 0.0 10^3/uL (0.0-0.2); BASO % 0.3 % (0.0-1.0); EOS # 0.1 10^3/uL (0.0-0.5); EOS % 0.4 % (0.0-3.0); LYMPH # 0.6 10^3/uL (1.5-5.0); LYMPH % 5.2 % (24.0-44.0); MONO # 0.5 10^3/uL (0.0-0.8); MONO % 4.3 % (2.0-8.0); NEUTROPHILS # 10.5 10^3/uL (1.5-8.5); NEUTROPHILS % 89.3 % (36.0-66.0); PLATELET COUNT, AUTOMATED 157 10^3/uL (150-450)
[2025-03-25 17:35] LABS: CK-MB VALUE MASS 1.6 NG/ML (<3.6)
[2025-03-25 17:36] LABS: CPK CREATINE PHOSPHOKINASE 52.0 U/L (46-171); MB/CK RELATIVE INDEX 3.07 (< OR =4)
[2025-03-25 17:40] LABS: CALCIUM LEVEL 8.1 MG/DL (8.3-10.6); CARBON DIOXIDE LEVEL 26.0 MMOL/L (20-31); CHLORIDE LEVEL 104.0 MMOL/L (98-107); CREATININE FOR GFR 1.22 MG/DL (0.70-1.30); GLOMERULAR FILTRATION RATE 61.1 (>42); MAGNESIUM LEVEL 2.0 MG/DL (1.8-2.4); POTASSIUM SERUM 4.0 MMOL/L (3.5-5.1); SODIUM LEVEL 138.0 MMOL/L (136-145)
[2025-03-25] MEDS: METOPROLOL 5 MG/5 ML VIAL IV STA (18:23)
[2025-03-25] MEDS: APIXABAN 5 MG TAB PO SCH (20:11)
[2025-03-25] MEDS: SENNA 8.6 MG TAB PO SCH (20:11)
[2025-03-25 20:23] LABS: CK-MB VALUE MASS 1.5 NG/ML (<3.6)
[2025-03-25 20:26] LABS: CPK CREATINE PHOSPHOKINASE 48.0 U/L (46-171); MB/CK RELATIVE INDEX 3.12 (< OR =4)
[2025-03-26] VITALS (16 sets, daily range): BP systolic 92–154; BP diastolic 47–69; TEMP 98.8–101.6; O2SAT 95–98
[2025-03-26] MEDS: CEFEPIME HCL 2 GM in DEXTROSE 5% (D5W) ADV/MINI-BAG 50 ML IV SCH (00:22)
[2025-03-26 02:59] LABS: BASO # 0.0 10^3/uL (0.0-0.2); BASO % 0.2 % (0.0-1.0); EOS # 0.0 10^3/uL (0.0-0.5); EOS % 0.3 % (0.0-3.0); LYMPH # 0.7 10^3/uL (1.5-5.0); LYMPH % 7.3 % (24.0-44.0); MONO # 0.5 10^3/uL (0.0-0.8); MONO % 4.9 % (2.0-8.0); NEUTROPHILS # 8.3 10^3/uL (1.5-8.5); NEUTROPHILS % 87.0 % (36.0-66.0); PLATELET COUNT, AUTOMATED 141 10^3/uL (150-450)
[2025-03-26 03:24] LABS: CALCIUM LEVEL 7.6 MG/DL (8.3-10.6); CARBON DIOXIDE LEVEL 24.0 MMOL/L (20-31); CHLORIDE LEVEL 107.0 MMOL/L (98-107); CREATININE FOR GFR 1.09 MG/DL (0.70-1.30); GLOMERULAR FILTRATION RATE 69.9 (>42); MAGNESIUM LEVEL 1.8 MG/DL (1.8-2.4); PHOSPHORUS LEVEL 2.3 MG/DL (2.4-5.1); POTASSIUM SERUM 4.0 MMOL/L (3.5-5.1); SODIUM LEVEL 139.0 MMOL/L (136-145)
[2025-03-26 03:41] LABS: C REACTIVE PROTEIN QUANTITATIV 16.38 MG/DL (<1.0)
[2025-03-26] MEDS: MAG SULF 1GM/100ML (MAG RUN) 1 GM in IV 1 EA IV ONE (04:06)
[2025-03-26] MEDS: ACETAMINOPHEN 325 MG TAB PO PRN (04:07)
[2025-03-26] MEDS: METOPROLOL TART 25 MG TABLET PO ONE (16:04)
[2025-03-27] VITALS (9 sets, daily range): BP systolic 119–164; BP diastolic 62–88; TEMP 98.2–99.8; O2SAT 91–96
[2025-03-27] MEDS: METOPROLOL TART 25 MG TABLET PO SCH ×2 (00:32→17:07)
[2025-03-27 08:09] LABS: BASO # 0.0 10^3/uL (0.0-0.2); BASO % 0.3 % (0.0-1.0); EOS # 0.0 10^3/uL (0.0-0.5); EOS % 0.5 % (0.0-3.0); LYMPH # 0.6 10^3/uL (1.5-5.0); LYMPH % 7.4 % (24.0-44.0); MONO # 0.6 10^3/uL (0.0-0.8); MONO % 7.3 % (2.0-8.0); NEUTROPHILS # 6.4 10^3/uL (1.5-8.5); NEUTROPHILS % 84.2 % (36.0-66.0); PLATELET COUNT, AUTOMATED 141 10^3/uL (150-450)
[2025-03-27 08:32] LABS: CALCIUM LEVEL 7.5 MG/DL (8.3-10.6); CARBON DIOXIDE LEVEL 24.0 MMOL/L (20-31); CHLORIDE LEVEL 108.0 MMOL/L (98-107); CREATININE FOR GFR 0.98 MG/DL (0.70-1.30); GLOMERULAR FILTRATION RATE 79.4 (>42); MAGNESIUM LEVEL 1.8 MG/DL (1.8-2.4); POTASSIUM SERUM 3.9 MMOL/L (3.5-5.1); SODIUM LEVEL 139.0 MMOL/L (136-145)
[2025-03-27 08:45] LABS: C REACTIVE PROTEIN QUANTITATIV 14.64 MG/DL (<1.0)
[2025-03-27 09:46] LABS: VANCOMYCIN RANDOM 14.0 UG/ML
[2025-03-27] MEDS: K-PHOS ORIGINAL (POT.ACID PHOSPHATE) 500 MG TAB PO SCH (09:48)
[2025-03-27] MEDS: PNEUMOC 21-VAL CONJ-DIP CRM/PF 0.5 ML SYRINGE IM.IMMUN ONE (11:00)
[2025-03-27] MEDS: POTASSIUM CHLORIDE 10MEQ SR TABLET PO ONE (13:51)
[2025-03-27] MEDS: MAG SULF 1GM/100ML (MAG RUN) 1 GM in IV 1 EA IV ONE ×2 (13:51→23:17)
[2025-03-27] MEDS ORDERED: PILL CUTTER 1 EACH XX PRN (15:00)
[2025-03-27] MEDS: MAG SULF 1GM/100ML (MAG RUN) 1 GM in IV 1 EA IV STA (22:10)
[2025-03-27] MEDS: POTASSIUM CHLORIDE 10% LIQ 20MEQ/15ML UDC PO ONE (22:39)
[2025-03-28] VITALS (9 sets, daily range): BP systolic 110–135; BP diastolic 58–79; TEMP 97.5–103.6; O2SAT 91–97
[2025-03-28 05:58] LABS: BASO # 0.0 10^3/uL (0.0-0.2); BASO % 0.2 % (0.0-1.0); EOS # 0.0 10^3/uL (0.0-0.5); EOS % 0.2 % (0.0-3.0); LYMPH # 0.5 10^3/uL (1.5-5.0); LYMPH % 5.5 % (24.0-44.0); MONO # 0.7 10^3/uL (0.0-0.8); MONO % 7.8 % (2.0-8.0); NEUTROPHILS # 7.7 10^3/uL (1.5-8.5); NEUTROPHILS % 85.5 % (36.0-66.0); PLATELET COUNT, AUTOMATED 157 10^3/uL (150-450)
[2025-03-28 06:18] LABS: CALCIUM LEVEL 7.3 MG/DL (8.3-10.6); CARBON DIOXIDE LEVEL 22.0 MMOL/L (20-31); CHLORIDE LEVEL 106.0 MMOL/L (98-107); CREATININE FOR GFR 1.08 MG/DL (0.70-1.30); GLOMERULAR FILTRATION RATE 70.7 (>42); MAGNESIUM LEVEL 2.3 MG/DL (1.8-2.4); POTASSIUM SERUM 4.3 MMOL/L (3.5-5.1); SODIUM LEVEL 137.0 MMOL/L (136-145)
[2025-03-28 06:35] LABS: C REACTIVE PROTEIN QUANTITATIV 14.72 MG/DL (<1.0)
[2025-03-28] MEDS ORDERED: METOPROLOL TART 50 MG TAB PO SCH (10:00)
[2025-03-28] MEDS: METOPROLOL TART 50 MG TAB PO ONE (10:21)
[2025-03-28] MEDS: SODIUM PHOSPHATE INJ 30 MMOL in D5W 500 ML IV ONE (12:19)
[2025-03-28] MEDS: METOPROLOL TART 50 MG TAB PO SCH (13:43)
[2025-03-28] MEDS: POTASSIUM PHOSPHATE INJ 15 MMOL in D5W 250 ML IV ONE (18:04)
[2025-03-28] MEDS: AMIODARONE HCL 150 MG in IV 1 EA IV SCH (19:13)
[2025-03-28] MEDS: AMIODARONE HCL 360 MG in IV 1 EA IV SCH (19:37)
[2025-03-28] MEDS ORDERED: LOPR1TAB6 PO (21:24)
[2025-03-28] MEDS ORDERED: VANC1INJ39 IV (21:24)
[2025-03-28] MEDS ORDERED: [UNRECOGNIZED DRUG - CODE] IV (21:26)
[2025-03-29] MEDS: AMIODARONE HCL 360 MG in IV 1 EA IV SCH (01:07)
[2025-03-29 03:45] VITALS: BP 148/82; TEMP 97.8; O2SAT 96
[2025-03-29 06:32] VITALS: BP 117/72; TEMP 98.8; O2SAT 94
[2025-03-29 10:00] LABS: BASO # 0.0 10^3/uL (0.0-0.2); BASO % 0.2 % (0.0-1.0); EOS # 0.0 10^3/uL (0.0-0.5); EOS % 0.2 % (0.0-3.0); LYMPH # 0.5 10^3/uL (1.5-5.0); LYMPH % 4.5 % (24.0-44.0); MONO # 0.8 10^3/uL (0.0-0.8); MONO % 7.9 % (2.0-8.0); NEUTROPHILS # 8.8 10^3/uL (1.5-8.5); NEUTROPHILS % 86.6 % (36.0-66.0); PLATELET COUNT, AUTOMATED 195 10^3/uL (150-450)
[2025-03-29 10:29] LABS: CALCIUM LEVEL 7.1 MG/DL (8.3-10.6); CARBON DIOXIDE LEVEL 25.0 MMOL/L (20-31); CHLORIDE LEVEL 104.0 MMOL/L (98-107); CREATININE FOR GFR 0.95 MG/DL (0.70-1.30); GLOMERULAR FILTRATION RATE 82.4 (>42); MAGNESIUM LEVEL 2.0 MG/DL (1.8-2.4); PHOSPHORUS LEVEL 2.4 MG/DL (2.4-5.1); POTASSIUM SERUM 4.1 MMOL/L (3.5-5.1); SODIUM LEVEL 137.0 MMOL/L (136-145)
[2025-03-29 10:41] LABS: C REACTIVE PROTEIN QUANTITATIV 15.21 MG/DL (<1.0)
[2025-03-29 11:49] VITALS: BP 130/61; TEMP 99.6; O2SAT 93
[2025-03-29 15:47] VITALS: BP 104/57; TEMP 102.7; O2SAT 93
[2025-03-29 19:33] VITALS: BP 146/61; TEMP 98.1; O2SAT 94
[2025-03-29] MEDS: CYCLOBENZAPRINE 10 MG TABLET PO PRN (21:41)
[2025-03-29 23:29] VITALS: BP 150/73; TEMP 100; O2SAT 94
[2025-03-30 03:26] VITALS: BP 165/80; TEMP 99.2; O2SAT 94
[2025-03-30 05:06] LABS: BASO # 0.0 10^3/uL (0.0-0.2); BASO % 0.2 % (0.0-1.0); EOS # 0.0 10^3/uL (0.0-0.5); EOS % 0.2 % (0.0-3.0); LYMPH # 0.4 10^3/uL (1.5-5.0); LYMPH % 5.0 % (24.0-44.0); MONO # 0.7 10^3/uL (0.0-0.8); MONO % 7.5 % (2.0-8.0); NEUTROPHILS # 7.6 10^3/uL (1.5-8.5); NEUTROPHILS % 86.3 % (36.0-66.0); PLATELET COUNT, AUTOMATED 191 10^3/uL (150-450)
[2025-03-30 05:27] LABS: CALCIUM LEVEL 7.2 MG/DL (8.3-10.6); CARBON DIOXIDE LEVEL 25.0 MMOL/L (20-31); CHLORIDE LEVEL 104.0 MMOL/L (98-107); CREATININE FOR GFR 1.01 MG/DL (0.70-1.30); GLOMERULAR FILTRATION RATE 76.6 (>42); MAGNESIUM LEVEL 2.0 MG/DL (1.8-2.4); POTASSIUM SERUM 4.4 MMOL/L (3.5-5.1); SODIUM LEVEL 137.0 MMOL/L (136-145)
[2025-03-30 05:38] LABS: C REACTIVE PROTEIN QUANTITATIV 15.22 MG/DL (<1.0)
[2025-03-30 07:56] VITALS: BP 146/64; TEMP 99.5; O2SAT 96
[2025-03-30] MEDS: AMIODARONE 200 MG TAB PO SCH (12:14)
[2025-03-30 12:37] VITALS: BP 144/69; TEMP 98; O2SAT 90
[2025-03-30] MEDS ORDERED: LIDOCAINE 1% MDV 20 ML VIAL As Ordered ONE (12:55)
[2025-03-30] MEDS ORDERED: ISOVUE-300 61% 100 ML VIAL As Ordered ONE (12:55)
[2025-03-30 14:07] VITALS: BP 144/69
[2025-03-30 15:12] VITALS: BP 145/60; TEMP 99; O2SAT 95
== END 2025-03-30 18:56 | disposition short-term general hospital (02) | DRG 559 ==
LOC: M ED 18:25 → M ED INP 22:16 → EEVIPCON 22:16 → M MS5PR 03-25 00:10 → M ICU 03-25 16:40 → M PCU 03-26 22:59
PROVIDERS: ADMIT Student in an Organized Health Care Education/Training Program; ATTEND Student in an Organized Health Care Education/Training Program
PROC: 0S9B3ZZ Drainage of Left Hip Joint, Percutaneous Approach (ICD-10-PCS; principal; 2025-03-30)
DX: T84.52XA Infection and inflammatory reaction due to internal left hip prosthesis, initial encounter (principal); A41.9 Sepsis, unspecified organism; R65.20 Severe sepsis without septic shock; M00.9 Pyogenic arthritis, unspecified; I48.21 Permanent atrial fibrillation; I47.20 Ventricular tachycardia, unspecified; I47.29 Other ventricular tachycardia; M25.562 Pain in left knee; J44.9 Chronic obstructive pulmonary disease, unspecified; R00.1 Bradycardia, unspecified; Z96.653 Presence of artificial knee joint, bilateral; M25.561 Pain in right knee; E66.01 Morbid (severe) obesity due to excess calories; Z68.33 Body mass index [BMI] 33.0-33.9, adult; Z96.652 Presence of left artificial knee joint; E83.39 Other disorders of phosphorus metabolism; Z79.01 Long term (current) use of anticoagulants; F43.10 Post-traumatic stress disorder, unspecified; F41.9 Anxiety disorder, unspecified; R26.89 Other abnormalities of gait and mobility; R29.6 Repeated falls; Z79.899 Other long term (current) drug therapy; Z88.8 Allergy status to other drugs, medicaments and biological substances; Z88.0 Allergy status to penicillin; Z88.5 Allergy status to narcotic agent; Z91.040 Latex allergy status; Z91.0120 Allergy to eggs, unspecified; E55.9 Vitamin D deficiency, unspecified; Y83.1 Surgical operation with implant of artificial internal device as the cause of abnormal reaction of the patient, or of later complication, without mention of misadventure at the time of the procedure